=== PATIENT | female | born 1995 | race Caucasian/White ===

== ENCOUNTER 2019-03-24 20:43 | Emergency (ER) | payer MEDICAID, SELFPAY ==
[2019-03-24 20:51] VITALS: BP 112/71; PULSE 89; RESP 20; TEMP 37.3; O2SAT 97
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
[2019-03-24] MEDS: Ketorolac 30 MG/ML VIAL IVP (21:31)
[2019-03-24] MEDS: Normal Saline Flush 10 ML SYR IVP (21:39)
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
--- NOTE | 2019-03-24 22:13 | NUR.NOTE ---
Nursing Note: C-collar removed by RN/MD.
[2019-03-24 22:37] VITALS: BP 110/68; PULSE 74; RESP 20; O2SAT 97
== END 2019-03-24 22:36 | disposition home or self-care (01) ==
PROVIDERS: Emergency Provider Physician Assistant; PCP Nurse Practitioner Family
DX: S06.0X9A Concussion with loss of consciousness of unspecified duration, initial encounter (principal); S16.1XXA Strain of muscle, fascia and tendon at neck level, initial encounter; S40.012A Contusion of left shoulder, initial encounter; V86.05XA Driver of 3- or 4- wheeled all-terrain vehicle (ATV) injured in traffic accident, initial encounter
CPT/HCPCS: 81025; 96374; 99284; 70450; 72125; 73030; J1885

== ENCOUNTER 2019-06-27 16:07 | Outpatient (REF) | payer MEDICAID, SELFPAY | END 2019-06-27 16:27 | LOC: LBN 16:07 | PROVIDERS: PCP Nurse Practitioner Family; Visit Provider Nurse Practitioner | DX: R30.0 Dysuria (principal) | CPT/HCPCS: 87086 ==

== ENCOUNTER 2019-07-21 03:56 | Emergency (ER) | payer MEDICAID, SELFPAY ==
[2019-07-21 03:58] VITALS: BP 119/66; PULSE 80; RESP 16; TEMP 36.4; O2SAT 99
--- NOTE | 2019-07-21 04:08 | ED.GENADUL_ITS ---
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 Please follow-up with the OB doctor on Monday or Monday. Avoid any vaginal intercourse until you are reassessed by physician. Would recommend bedrest until you are seen by the OB doctor. Please continue to drink plenty of fluids, take Tylenol as needed for cramping. If you notice any worsening of your symptoms, or any new symptoms such as vomiting, diarrhea, fever, chills, shortness of breath, chest pain, numbness, weakness, or fainting , please return immediately to the emergency department for reevaluation. Please follow up with your primary care provider as soon as possible for reassessment and reevaluation. As always, it was a pleasure participating in your medical care today. Referrals: Christine Monreal [ CONSULTING PHYSICIAN] - Medical Decision Making This is a 23-year-old female who presents today for vaginal bleeding. She took a home test 2 weeks ago, it was positive. She suspects that she is 6 to 8 weeks at this time. She had vaginal bleeding that began yesterday, and was a small amount of brown streaking. However she has had slightly larger clots today. No significant profuse vaginal bleeding. Pain aside for occasional cramping. Physical exam demonstrates an obese female, no abdominal tenderness, no pelvic tenderness. Vaginal exam demonstrates an open cervix, small amount of brown coagulated blood in this cervical area and vaginal vault. No active bleeding. No tenderness or cervical motion tenderness or bimanual tenderness whatsoever. Cervix is atypically conical shaped. Patient denies having any atypical vaginal exams in the past. Limited bedside ultrasou nd demonstrates what appears to be a partial yolk sac in the uterus. No fully formed fetus can be visualized, no heart rate can be determined at this time. Signs and symptoms clinically appearing consistent with topic and clinically consistent with a threatened versus incomplete miscarriage. We will get Rh status, and serum hCG level. Pending these we did recommend bedrest, pelvic rest, close follow-up with OB. Will place referral for closer follow-up. Discussed red flags for which to return. I have extensively reviewed the treatment plan and discharge instructions with the patient and their family. I have addressed all patient concerns at this time. The patient and family was made aware of what symptoms to monitor for that would warrant a return to the emergency department. Discussed the plan with the patient and family, they demonstrate verbal understanding and agreement with our assessment and plan at this time. Patient is Rh-. She will be given RhoGam here. HPI General Date/Time Provider Initiated Documentation: 07/21/19 03:56 . HPI Narrative: Andrea gay is a 23-year-old female with no significant past medical history who presents for vaginal bleeding. Patient states she recently took a test, and it was positive. She suspects that she is 8 weeks . Yesterday she noticed a small amount of brown bleeding and streaking, and then today she is noticed increased bleeding mild cramping and small amounts of clots. She denies any nausea vomiting or diarrhea. She denies any previous . She denies any dysuria or urinary complaints. She is taking vitamins. She has not seen OB yet. She has no other complaints at this time. 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 CARRIE: 3 Review of Systems All systems reviewed & are unremarkable except as noted in HPI and below PFSH Medical History (Updated 07/15/19 @ 11:01 by Elaine Valerio) Allergic rhinitis (Acute 03/15/12) Attention deficit hyperactivity disorder (Acute 09/26/11) good control w/ current med Depression (Inactive) Dysmenorrhea Dysuria (Acute) Insomnia (Acute) Mood disorder (Acute) Other specified behavioral problem (Acute 08/23/12) lying Surgical History (Updated 06/27/19 @ 14:32 by Judy Guerra RN) History of cholecystectomy (Chronic) Family History (Updated 06/27/19 @ 14:28 by Judy Guerra RN) Mother Asthma Anxiety Depression Social History (Updated 07/15/19 @ 10:55 by Elaine Valerio) Smoking/Tobacco Use Status: Current-Occasional Smokeless tobacco user: other Smoking risk assessment performed?: Yes Alcohol Intake: current Alcohol Intake frequency: a few times a month Drug use: Rarely Substance use type: marijuana Adopted: No Caregiver/Support person: No Foster care: No Household members: significant other Housing: apartment Do you need help understanding health information?: Rarely current occupation: Unemployed Sexually active: Yes Do you think of yourself as: bisexual Current gender identity: female Do you feel safe at home: Yes Do you feel safe in your relationship?: Yes Additional Social history: Patient vapes. Exam Narrative Exam Narrative: 1.Const: Obese, well-nourished, Well-developed, appearing stated age 2.Eyes: PERRL, no conjunctival injection, and symmetrical lids. 3.ENT: Atraumatic external nose and ears. Moist MM. Neck: Symmetric, trachea midline, No thyromegaly. 4.CVS: +S1/S2, No murmurs or gallops. Peripheral pulses 2+ and equal in all extremities. Brisk capillary refill in all extremities. 5.RESP: Unlabored respiratory effort. Clear to auscultation bilaterally. No wheezes rales or rhonchi 6.GI: Soft, Nontender/Nondistended, No hepatosplenomegaly. No guarding or rebound. Pelvic exam was performed with female nurse Cristina at bedside, no active bleeding. No cervical motion tenderness, no tenderness on bimanual exam. Cervix itself was notably deep, and atypically positioned. It did appear open, but at the same time more conical shaped no pain or tenderness, no other abnormalities. 7.MSK: Normocephalic/Atraumatic, Extremities w/o deformity or ttp No cyanosis or clubbing, Normal movement of all extremities 8.Skin: Warm, Dry. No rashes or lesions. 9.Neuro: hospitalist nocturnist physician II-XII grossly intact. Sensation grossly intact, no focal neurologic deficits. 10.Psych: (AAO) x3. Appropriate mood and affect Course Vital Signs Vital signs: Vital Signs Temperature 36.4 C L 07/21/19 03:58 Pulse 80 07/21/19 03:58 Respiratory Rate 16 07/21/19 03:58 Blood Pressure 119/66 07/21/19 03:58 Pulse Oximetry 99 07/21/19 03:58 Temperature 36.4 C L 07/21/19 03:58 Temperature Source Skin 07/21/19 03:58 Pulse 80 07/21/19 03:58 Respiratory Rate 16 07/21/19 03:58 Respiratory Effort 07/21/19 04:01 Blood Pressure 119/66 07/21/19 03:58 Blood Pressure Position Supine 07/21/19 03:58 Pulse Oximetry 99 07/21/19 03:58 Oxygen Delivery Method Room Air 07/21/19 03:58 Oxygen Flow Rate 0 07/21/19 03:58
[2019-07-21 04:41] LABS: HCT 40.8 % (36.0-46.0); HGB 13.4 g/dL (12.0-15.5); Mean Corp. HGB Concentration 32.8 g/dL (32.0-36.0); Mean Corpuscular Volume 91.5 fL (80-95); Mean Platelet Volume 8.9 fL (8.0-11.0); Platelet Count 407 x1000/uL (130-400); RBC 4.46 m/cumm (4.00-5.20); RBC Distribution Width 13.3 % (11.7-14.6); White Blood Cell Count 11.03 k/cumm (4.4-10.8)
[2019-07-21 05:20] LABS: HCG Quant, Pregnancy 12357 mIU/mL (1-3)
--- NOTE | 2019-07-21 07:44 | NUR.NOTE ---
Nursing Note: Referral faxed to [facility] for follow up Mon or . Hayde Da Silva
== END 2019-07-21 05:25 | disposition home or self-care (01) ==
LOC: ER 05:27
PROVIDERS: Emergency Provider Student in an Organized Health Care Education/Training Program; PCP Nurse Practitioner
DX: O20.0 Threatened abortion (principal); Z3A.01 Less than 8 weeks gestation of pregnancy
CPT/HCPCS: 85027; 86900; 86901; 90384; 96372; 99284; 84702; 99283; J2790

== ENCOUNTER 2019-07-23 13:22 | Outpatient (CLI) | payer MEDICAID, SELFPAY ==
[2019-07-23 14:58] LABS: HCG Quant, Pregnancy 10262 mIU/mL (1-3)
== END 2019-07-23 13:42 ==
PROVIDERS: PCP Nurse Practitioner; Visit Provider Obstetrics & Gynecology
DX: O20.0 Threatened abortion (principal)
CPT/HCPCS: 36415; 84702

== ENCOUNTER 2019-07-26 08:31 | Emergency (ER) | payer MEDICAID, SELFPAY ==
[2019-07-26 08:33] VITALS: BP 108/68; PULSE 90; RESP 18; TEMP 36.6; O2SAT 98
--- NOTE | 2019-07-26 08:50 | ED.GENADUL_ITS ---
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 Take Tylenol every 4 hours as needed and directed for pain. Return to the hospital lab in 48 hours for repeat hormone (beta quantitative hCG) test. You will receive a call from Dr. May on Monday regarding these results. You can follow-up with women's wellness as directed. Return to the emergency department anytime if you develop any significant worsening or new concerning symptoms. Discharge Data Discharge Physician: Megha Martin Medical Decision Making 23-year-old female G1, P0 at approximately 5 weeks 4 days based on LMP 06/17/2019 presents for lower abdominal pain, vaginal bleeding and nausea and vomiting. Patient was seen here 5 days ago for the same complaint, 1 day after determining she was by home test, for abdominal pain and vaginal blee ding. Dr. Brown had done a limited bedside ultrasound which noted a possible yolk sac. She was noted to have an open [place] [id number] and referred for repeat beta quant in 48 hours. Her repeat beta quant at 48 hours was [id number]. Patient states she was not informed of these results. Patient presents today for worsening lower abdominal pain and gush of vaginal bleeding with small clots today while standing at work. She denies recent sexual intercourse. She admits to vomiting 5 times last evening. She states her lower abdominal pain is sharp and cramping. She has not taken any medication for pain. patient has a pelvic ultrasound planned for Monday for this . This patient was noted to have an open cervix 5 days ago, do not see an indication for repeat pelvic exam at this time. Likely recommend repeat beta quant in 48 hours with plan for follow-up with women's wellness. Case discussed with Dr. May who is in agreement with this plan will call patient on Monday with her beta quant results and discuss further plan with her at that time. A dose of Tylenol and Zofran given here to patient for her symptoms. She was advised to continue pelvic rest, bedrest, take Tylenol and Zofran as needed and return to the hospital in 48 hours for repeat beta quant. She was advised to return here with any worsening or new concerning symptoms. HPI General Mode of arrival: ambulatory . Date/Time Provider Initiated Documentation: 07/26/19 08:31 . Limitations to Documentation: no limitations . Information obtained by: patient . History of Present Illness 23 year old F presents to the emergency department with the chief complaint of abdominal pain, vaginal bleeding, n/v, Quality is described as aching and sharp, and is localized to the abdomen. Patient reports no radiation. Patient started experiencing this day(s) (5) and it has been constant. No relieving factors improve symptom(s), No exacerbating factors reported . Patient notes nausea/vomiting (vomiting 5 x); denies fever/chills and headaches. 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 CARRIE: 3 Review of Systems All systems reviewed & are unremarkable except as noted in HPI and below Constitutional Constitutional: Reports as per HPI, Denies chills and Denies fever(s) Eyes Eyes: Denies blurry vision ENT Ears, Nose, Mouth, and Throat: Denies dizziness, Denies sore throat and Denies throat swelling Cardiovascular Cardiovascular: Denies chest pain and Denies dyspnea Respiratory Respiratory: Denies cough and Denies dyspnea Gastrointestinal Gastrointestinal: Reports abdominal pain, Denies diarrhea and Denies vomiting Genitourinary Genitourinary: Denies hematuria, Denies dysuria and Reports other (vaginal bleeding) Musculoskeletal Musculoskeletal: Denies back pain and Denies numbness Integumentary/Breasts Skin/Breast: Denies lesions and Denies rash Neurologic Neurologic: Denies dizziness, Denies focal weakness and Denies numbness Allergic/Immunologic Allergic/Immunologic: Denies throat swelling [facility] Medical History Allergic rhinitis (Acute 03/15/12) Attention deficit hyperactivity disorder (Acute 09/26/11) good control w/ current med Depression (Inactive) Dysmenorrhea Dysuria (Acute) Insomnia (Acute) Mood disorder (Acute) Other specified behavioral problem (Acute 08/23/12) lying Surgical History History of cholecystectomy (Chronic) Family History Mother Asthma Anxiety Depression Social History Smoking/Tobacco Use Status: Current-Occasional Smokeless tobacco user: other Smoking risk assessment performed?: Yes Alcohol Intake: current Alcohol Intake frequency: a few times a month Drug use: Rarely Substance use type: marijuana Adopted: No Caregiver/Support person: No Foster care: No Household members: significant other Housing: apartment Do you need help understanding health information?: Rarely current occupation: Unemployed Sexually active: Yes Do you think of yourself as: bisexual Current gender identity: female Do you feel safe at home: Yes Do you feel safe in your relationship?: Yes Additional Social history: Patient vapes. Exam Const General: cooperative, healthy appearing and no acute distress HENMT Head: normal to inspection Face and sinus: normal facial exam Eyes General: appearance normal, both eyes and all related structures EOM: EOM intact bilaterally Neck Neck: normal visual inspection and No submandibular swelling Lymphatic: no lymphadenopathy noted Chest Chest: normal inspection of the chest and no tenderness Resp Effort & Inspection: normal respiratory effort and able to speak in complete sentences Auscultation: clear to auscultation bilaterally Cardio Rate: regular rate Rhythm: regular rhythm GI Inspection: normal to inspection Palpation: soft, not firm, not rigid and tender (across lower abdomen, mild- moderate) Auscultation: normal bowel sounds Skin General skin exam: no rashes or lesions noted Neuro General: alert, awake and oriented x3 Cognition: normal cognition Speech: speech normal Motor: muscle tone normal throughout Sensory Exam: no sensory deficits noted Extrem General: normal to inspection, full ROM, normal capillary refill, no calf tenderness bilaterally and no edema Psych Appearance: grossly normal Mental Status: mental status grossly normal Speech and Movement: speech and movement normal Affect: normal affect Course Vital Signs Vital signs: Vital Signs Temperature 97.9 F 07/26/19 08:33 Pulse 90 07/26/19 08:33 Respiratory Rate 18 07/26/19 08:33 Blood Pressure 108/68 07/26/19 08:33 Pulse Oximetry 98 07/26/19 08:33 Temperature 97.9 F 07/26/19 08:33 Temperature Source Skin 07/26/19 08:33 Pulse 90 07/26/19 08:33 Respiratory Rate 18 07/26/19 08:33 Respiratory Effort 07/26/19 08:38 Blood Pressure 108/68 07/26/19 08:33 Pulse Oximetry 98 07/26/19 08:33 Oxygen Delivery Method Room Air 07/26/19 08:33 Oxygen Flow Rate 0 07/26/19 08:33 Pain Level 8 07/26/19 08:33
[2019-07-26] MEDS: Acetaminophen 325 MG TAB (09:26)
[2019-07-26] MEDS: Ondansetron O.D.T. 4 MG TABEF (09:27)
[2019-07-26 09:33] VITALS: BP 89/71; PULSE 81; RESP 20; TEMP 36.8; O2SAT 97
[2019-07-26 09:39] VITALS: BP 89/71; PULSE 81; RESP 20; TEMP 36.8; O2SAT 97
== END 2019-07-26 09:50 | disposition home or self-care (01) ==
PROVIDERS: Emergency Provider Physician Assistant; PCP Nurse Practitioner
DX: O03.4 Incomplete spontaneous abortion without complication (principal); N93.9 Abnormal uterine and vaginal bleeding, unspecified; R11.2 Nausea with vomiting, unspecified; R10.2 Pelvic and perineal pain
CPT/HCPCS: 99283

== ENCOUNTER 2019-07-28 09:51 | Outpatient (CLI) | payer MEDICAID, SELFPAY ==
[2019-07-28 12:02] LABS: HCG Quant, Pregnancy 3196 mIU/mL (1-3)
== END 2019-07-28 10:11 ==
PROVIDERS: PCP Nurse Practitioner; Visit Provider Physician Assistant
DX: O03.4 Incomplete spontaneous abortion without complication (principal)
CPT/HCPCS: 36415; 84702

== ENCOUNTER 2019-10-18 19:06 | Emergency (ER) | payer MEDICAID, SELFPAY ==
[2019-10-18 19:10] VITALS: BP 121/72; PULSE 87; RESP 16; TEMP 37.6; O2SAT 97
--- NOTE | 2019-10-18 19:22 | ED.GENADUL_ITS ---
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 Your test was positive here today. Encourage water intake. Please continue with your vitamin. Please call women's wellness on Monday to schedule follow-up appointment. If develop abdominal Pain, fever/chills, abnormal vaginal discharge or bleeding, other new/worsening symptom please seek care urgently once again. Referrals: Pascale May MD [[facility] STAFF PHYSICIAN] - Lara Bejarano NP [Primary Care Provider] - Medical Decision Making Patient is a 23-year-old female presenting today for confirmation of status. She reports that she did take a home test and was noted to be positive. States she did have a miscarriage in July. She did receive RhoGam at that time. He is followed by women's wellness. Reports that her last menses was on 09/05/2019. Normal at that time. She denies any vaginal discharge. No abdominal pain. She has not had any fevers or chills. No cough. States that she is otherwise feeling well. Presents for confirmation of her status. Her UPT was positive. Advised normal follow-up and discuss recommendations in the first trimester . She was given return precautions. She will contact women's wellness regarding follow-up. All of her questions and concerns were addressed and she is agreement this plan. HPI General Mode of arrival: ambulatory . Date/Time Provider Initiated Documentation: 10/18/19 19:22 . Limitations to Documentation: no limitations . Information obtained by: patient and RN notes reviewed . History of Present Illness 23 year old F presents to the emergency department with the chief complaint of wants to confirm , Patient started experiencing this minute(s) Patient notes no other symptoms.. Patient did receive the following treatments prior to arrival, none Related Data Home Medications Medication Instructions Recorded Confirmed ondansetron HCl [Zofran] 4 mg PO Q8H PRN #10 tab 07/26/19 10/18/19 norgestimate 0.25 mg-ethinyl 1 tab PO DAILY #84 tab 08/06/19 09/26/19 estradiol 35 mcg tablet dextroamphetamine-amphetamine ER 25 mg PO QAM #30 cap MDD 25mg 09/26/19 10/18/19 25 mg 24hr capsule,extend release fluoxetine 20 mg capsule 20 mg PO DAILY #30 cap 09/26/19 10/18/19 Previous Rx's Medication Instructions Recorded ondansetron HCl [Zofran] 4 mg PO Q8H PRN #10 tab 07/26/19 norgestimate 0.25 mg-ethinyl 1 tab PO DAILY #84 tab 08/06/19 estradiol 35 mcg tablet dextroamphetamine-amphetamine ER 25 mg PO QAM #30 cap MDD 25mg 09/26/19 25 mg 24hr capsule,extend release fluoxetine 20 mg capsule 20 mg PO DAILY #30 cap 09/26/19 Allergies Allergy/AdvReac Type Severity Reaction Status Date / Time No Known Allergies Allergy Verified 08/06/19 10:43 General 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: 4 Review of Systems Constitutional Constitutional: Reports as per HPI, Denies chills, Denies fatigue, Denies fever(s) and Denies malaise Cardiovascular Cardiovascular: Denies chest pain and Denies dyspnea Respiratory Respiratory: Denies cough and Denies dyspnea Gastrointestinal Gastrointestinal: Denies abdominal pain, Denies bloating, Denies change in stool character, Reports nausea (states mild nausea), Denies vomiting and Denies hematemesis Genitourinary Genitourinary: Reports abnormal menses (last menses was 09/05/2019), Denies abnormal vaginal bleeding, Denies metrorrhagia, Denies hematuria, Denies difficulty conceiving, Denies genital lesions, Denies urinary urgency and Denies vaginal discharge Endocrine Endocrine: Denies fatigue [facility] Family History (Updated 09/26/19 @ 10:18 by Vikki Pathak RN) Mother Asthma Anxiety Depression Father Anxiety Depression ADHD Social History (Updated 09/26/19 @ 10:21 by Vikki Pathak RN) Smoking/Tobacco Use Status: Former Tobacco Use Quit Date: 08/24/19 Smokeless tobacco user: other Smoking risk assessment performed?: No Alcohol Intake: current Alcohol Intake frequency: a few times a month Alcohol type: other Drug use: Current Sobriety Substance use type: former substance user and marijuana Adopted: No Caregiver/Support person: No Foster care: No Household members: significant other Housing: apartment Number of Children: 0 Do you need help understanding health information?: Rarely current occupation: Unemployed Sexually active: Yes Do you think of yourself as: bisexual Current gender identity: female What type of physical activity do you participate in: walking Duration: 15-30 minutes/day Frequency: 5-6 times per week Do you feel safe at home: Yes Do you feel safe in your relationship?: Yes Exam Const General: cooperative, healthy appearing, comfortable and no acute distress Nutritional Appearance: well nourished and obese Orientation: alert, awake and oriented x3 HENMT Head: normal to inspection Ears: hearing grossly normal bilaterally Face and sinus: normal facial exam Mouth: oral mucosae normal Eyes General: appearance normal, both eyes and all related structures Resp Effort & Inspection: normal respiratory effort, able to speak in complete sentences and no respiratory distress Skin General skin exam: no rashes or lesions noted Neuro General: patient alert, patient awake and patient oriented x3 Cognition: normal cognition Speech: speech normal Gait: normal gait Psych Appearance: grossly normal and well kempt Mental Status: mental status grossly normal Speech and Movement: speech and movement normal Course Vital Signs Vital signs: Vital Signs Temperature 37.6 C H 10/18/19 19:10 Pulse 87 10/18/19 19:10 Respiratory Rate 16 10/18/19 19:10 Blood Pressure 121/72 10/18/19 19:10 Pulse Oximetry 97 10/18/19 19:10 Temperature 37.6 C H 10/18/19 19:10 Pulse 87 10/18/19 19:10 Respiratory Rate 16 10/18/19 19:10 Respiratory Effort Non-Labored 10/18/19 19:15 Blood Pressure 121/72 10/18/19 19:10 Pulse Oximetry 97 10/18/19 19:10 Pain Level 0 10/18/19 19:15 Lab/Test Results Lab/Test Results: POC Urine Test Start: 10/18/19 19:21 Freq: Status: Complete Protocol: Document 10/18/19 19:21 KR (Rec: 10/18/19 19:21 KR [id number]) Test(Urine)-POC POC- Test(urine) Positive POC- Test(urine) Positive
== END 2019-10-18 19:59 | disposition home or self-care (01) ==
PROVIDERS: Emergency Provider Physician Assistant; PCP Nurse Practitioner
DX: R11.0 Nausea (principal); Z33.1 Pregnant state, incidental; Z3A.00 Weeks of gestation of pregnancy not specified
CPT/HCPCS: 81025; 99282

== ENCOUNTER 2020-04-06 16:10 | Outpatient (CLI) | payer MEDICAID, SELFPAY ==
[2020-04-08 05:39] LABS: Patient Race White; SARS-CoV-2 RNA Undetected (Undetected); SARS-CoV-2 Specimen Source Nasal
== END 2020-04-06 16:30 ==
PROVIDERS: PCP Nurse Practitioner; Visit Provider Family Medicine
DX: Z11.59 Encounter for screening for other viral diseases (principal)
CPT/HCPCS: U0003

== ENCOUNTER 2020-04-09 16:28 | Outpatient (REF) | payer MEDICAID, SELFPAY ==
[2020-04-09 17:03] LABS: *AMPHETAMINES SCREEN URINE Negative (Negative); *BARBITURATES SCREEN URINE Negative (Negative); *BENZODIAZEPINES SCREEN URINE Negative (Negative); Cannabinoids THC Negative (Negative); Cocaine Screen,Urine Negative (Negative); METHADONE URINE SCREEN Negative (Negative); OPIATES URINE SCREEN Negative (Negative); Tricyclic Antidepressants Negative (Negative)
[2020-04-14 10:38] LABS: Buprenorphine Negative
== END 2020-04-09 16:48 ==
LOC: LBN 16:28
PROVIDERS: PCP Nurse Practitioner; Visit Provider Advanced Practice Midwife
DX: Z34.90 Encounter for supervision of normal pregnancy, unspecified, unspecified trimester (principal); F11.11 Opioid abuse, in remission
CPT/HCPCS: 80307; 87086

== ENCOUNTER 2020-05-05 00:30 | Outpatient (CLI) | payer MEDICAID, SELFPAY ==
--- NOTE | 2020-05-05 07:00 | DI.US_ITS ---
EXAM: US OB JOSE WEIGHT CLINICAL HISTORY: estimated wt and position,E66.0,Z34.93. TECHNIQUE: Transabdominal obstetrical ultrasound performed. COMPARISON: No exams were available for comparison FINDINGS:: Number of fetuses: One. position: Vertex. Placental location: Posterior. No evidence of previa. BIOMETRIC DATA: BPD: 90mm = 36+ 2 weeks HC: 331mm = 37+ 5 weeks AC: 339mm = 37+ 5 weeks FL: 70 mm = 35+5 weeks EFW: 3114 Gms = 77 % Composite Age: 36+ 6 EDC: 27 May 2020 Heart Rate: 130BPM Amniotic fluid index: 17.8 cm. Amount of fluid is within normal limits. IMPRESSION: size and weight are within the expected range. DATA REPOSITORY:
== END 2020-05-05 00:50 ==
PROVIDERS: PCP Nurse Practitioner; Visit Provider Obstetrics & Gynecology Gynecology
DX: Z34.93 Encounter for supervision of normal pregnancy, unspecified, third trimester (principal); E66.9 Obesity, unspecified
CPT/HCPCS: 76816

== ENCOUNTER 2020-05-06 15:55 | Outpatient (REF) | payer MEDICAID, SELFPAY ==
[2020-05-06 19:11] LABS: *AMPHETAMINES SCREEN URINE Negative (Negative); *BARBITURATES SCREEN URINE Negative (Negative); *BENZODIAZEPINES SCREEN URINE Negative (Negative); Cannabinoids THC Negative (Negative); Cocaine Screen,Urine Negative (Negative); METHADONE URINE SCREEN Negative (Negative); OPIATES URINE SCREEN Negative (Negative)
[2020-05-06 19:32] LABS: Tricyclic Antidepressants Negative (Negative)
== END 2020-05-06 16:15 ==
LOC: LBN 15:55
PROVIDERS: PCP Nurse Practitioner; Visit Provider Obstetrics & Gynecology
DX: Z34.93 Encounter for supervision of normal pregnancy, unspecified, third trimester (principal); Z36.85 Encounter for antenatal screening for Streptococcus B; Z3A.36 36 weeks gestation of pregnancy
CPT/HCPCS: 80307; 87081

== ENCOUNTER 2020-05-13 20:11 | Outpatient (CLI) | payer MEDICAID, SELFPAY ==
[2020-05-13 20:32] VITALS: BP 121/78; PULSE 89; TEMP 208.8; TEMP 98.2
--- NOTE | 2020-05-14 13:41 | W.OBNST ---
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 Gestational Age Gestational Age in Weeks and Days: 36 Weeks and 4Days Test and Monitor Explained Test/Monitor Explained: Test Explained, Monitor Explained and Patient Verbalized Understanding Vital Signs Blood Pressure: 121/78 Pulse: 89 Temperature: 208.8 F NST Information Date on Monitor: 05/13/20 Time on Monitor: 20:26 Date off Monitor: 05/13/20 Time off Monitor: 20:47 Total Time on Monitor: 21 NST Interventions: PO Hydration Contraction Frequency: NONE NST Evaluation Patient States Movement: Present FHR Baseline: 140 Variability: Moderate 6-25 bpm Accelerations: 15x15 Decelerations: None NST Results: Reactive Note Other (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 Cervix is closed long no evidence of labor) NST Note Note: Reactive NST. No contractions. Patient given reassurance that she is not in labor. She will follow-up at [facility] on 05/14/2020 as previously scheduled. NST Reviewed and Verified by: Pascale May
[2020-05-14 13:42] VITALS: BP 121/78; PULSE 89; TEMP 208.8; TEMP 98.2
== END 2020-05-13 20:50 | disposition home or self-care (01) ==
LOC: BCD 20:13 → OBS 20:32
PROVIDERS: PCP Nurse Practitioner; Visit Provider Obstetrics & Gynecology Gynecology
DX: O47.1 False labor at or after 37 completed weeks of gestation (principal); Z3A.36 36 weeks gestation of pregnancy
CPT/HCPCS: 59025; 76815

== ENCOUNTER 2020-06-10 16:27 | Emergency (ER) | payer MEDICAID, SELFPAY ==
[2020-06-10] VITALS (35 sets, daily range): BP systolic 95–139; BP diastolic 38–108; PULSE 77–116; RESP 11–26; TEMP 36.6; O2SAT 94–100
--- NOTE | 2020-06-10 16:45 | RT.EKG_ITS ---
APPROVED REPORT Exam: Resting ECG Patient Location: E HR:121 bpm ECG Measurements Heart Rate 121 AXIS WY 125 P 50 QRSd 72 QRS 63 QT 293 T 27 QTc 416 Conclusion Sinus tachycardia...rate> 99 Low voltage, precordial leads...precordial leads <1.0mV sinus tachycardia at 121, normal axis, no acute ischemic changes, nondiagnostic EKG
[2020-06-10 17:22] LABS: HCT 34.3 % (36.0-46.0); HGB 10.6 g/dL (11.2-15.7); Lymphocytes % 10.6; MCH 28.2 pg (27.0-33.0); MCHC 30.9 % (32.0-36.0); MCV 91.2 fL (80-95); MPV 9.3 fL (8.0-11.0); Neutrophils % 80.6; Platelet Count 503 10^3/uL (130-400); RBC 3.76 10^6/uL (3.93-5.22); RDW 16.5 % (11.7-14.6); RDW-SD 54.4 fL; WBC 12.82 10^3/uL (4.4-10.8)
[2020-06-10 17:23] LABS: Abs Immature Grans 0.16 10^3/uL (0.0-0.06); Absolute Basophil Count 0.05 10^3/uL (0.0-0.2); Absolute Eosinophil Count 0.17 10^3/uL (0.0-0.7); Absolute Lymphocyte Count 1.36 10^3/uL (1.2-3.4); Absolute Neutrophil Count 10.33 10^3/uL (1.2-6.7); Basophils % 0.4; Eosinophils % 1.3; Immature Grans % 1.2; Monocytes % 5.9; Nucleated RBC 0 %
[2020-06-10 17:27] LABS: Absolute Monocyte Count 0.76 10^3/uL (0.1-0.8)
[2020-06-10 17:38] LABS: Prothrombin Time 10.3 sec (9.3-11.0)
[2020-06-10 17:47] LABS: ALT 22 U/L (14-59); AST 21 U/L (15-37); Albumin 2.7 g/dL (3.4-5.0); Alkaline Phosphatase 160 U/L (46-116); Anion Gap 11.7 mmol/L (3-11); BUN 7 mg/dL (7-18); Bilirubin, Total 0.4 mg/dL (0.2-1.0); CO2 24.3 mmol/L (21.0-32.0); CREATININE 1.11 mg/dL (0.55-1.02); Calcium 9.3 mg/dL (8.5-10.1); Chloride 102 mmol/L (98-107); Glucose 89 mg/dL (74-106); Magnesium 1.6 mg/dL (1.8-2.4); Sodium 138 mmol/L (136-145); Total Protein 7.8 g/dL (6.4-8.2)
--- NOTE | 2020-06-10 17:50 | ED.GENADUL_ITS ---
Discharge Plan Disposition Patient Disposition: HOME Condition: Stable Discharge Details Clinical Impression: Edema, peripheral Primary Care Provider: Lara Bejarano ED Provider: Oliver Longoria Meds and New Rx's Prescriptions: Continued prenat.vits,rossy,[id number] Tablet 1 tab PO DAILY RF: 0 epinephrine [EpiPen 2-Vj] 0.3 mg/0.3 mL auto-injector 0.3 mg IM ONCE PRNRF: 0 esomeprazole magnesium [Nexium Packet] [address] for susp in packet 20 mg PO DAILY Qty: 30 RF: 0 Discharge Instructions Instructions: Enoxaparin (By injection), Deep Vein Thrombosis (ED), Edema (ED) Additional Instructions: Please return immediately to the emergency department if you develop any new or worsening symptoms, if your condition does not improve as expected, or if you become otherwise concerned. It is extremely important that you return here tomorrow to have your leg ultrasound as we discussed. As soon as you have your leg ultrasound, please go directly [facility] to be seen by Dr. Dempsey of obstetrics in follow-up. Referrals: Phuc Mora MD [ NON-[facility] STAFF PHYSICIAN] - Discharge Data Discharge Date/Time-TO BE ENTERED AT DEPARTURE: 06/10/20 22:13 Medical Decision Making <Akilah Fuentes MD - Last Filed: 06/24/20 22:31> Howie Solano is a 24 y/o woman who presented to the emergency department with LLE edema > RLE edema after one week ago. On exam Pt with b/l LE edema, left > right. Otherwise benign physical exam. Triage BP elevated. Concern for pre-eclampsia, however BP cuff ill-fitting and manual BP 105/70. Concern for DVT, metabolic/lyte derangement, other. US not available. Plan for screening labs. Exam/hx at this time not c/w sepsis, pre-eclampsia, cardiomyopathy, acute emergent infectious process. I discussed Pt with Dr. Diaz of obstetrics, who recommended ppx lovenox with outpt official US tomorrow am. Requested Pt go directly to [facility] after US performed. This was relayed to Pt, Pt amenable. On reassessment Pt reports to me that she has been having mild chest tightness over past few days. Pt is unsure whether pain is exertional. No current chest pain. Low risk for ACS, possible PE. Plan for d-dimer, trop. Bedside US performed by me shows compressible left femoral, popliteal veins. EKG okay. D-dimer elevated, trop negative. Plan for CT chest. CT chest negative for PE. Pt signed out to Dr. Longoria at time of shift change with repeat trop, reassessment pending. US ordered. Medical Records Medical records reviewed: Yes I reviewed the patient's medical records. Imaging Data Radiologic Study: Attestation: I personally reviewed and interpreted this imaging study as follows: Radiologist's impression: EXAM: CT CHEST PE CTA CLINICAL HISTORY: tachycardia, leg swelling. TECHNIQUE: Imaging Protocol: Axial CT angiography was performed with multi- slice acquisition and multi-planar and/or 3D reconstructions. CONTRAST MATERIAL: Intravenous: Omnipaque 350 Contrast volume:100 mL COMPARISON: No exams were available for comparison FINDINGS: Pulmonary Arteries: No evidence of filling defect to suggest pulmonary emboli. Tracheobronchial tree: Patent where visualized. Mediastinum and Joselyn: No dominant adenopathy or fluid collection. Pulmonary parenchyma: No focal consolidation. There is a 4 mm noncalcified subpleural pulmonary nodule in the right middle lobe (series 7, image 250). In a patient this age and no clinically significant risk factors, no follow-up is recommended as it is most certainly benign. Please correlate clinically. No architectural distortion. Pleura: No effusion or pneumothorax. Heart: The heart is not dilated. No coronary artery calcifications are seen. No significant pericardial effusion. Aorta: Thoracic aorta non-dilated. No dissection. Upper abdomen: Status post cholecystectomy. Bones: Normal. Soft tissues: Unremarkable. IMPRESSION: No evidence of pulmonary embolism, thoracic aortic dissection or aneurysm. Lab Data Lab results reviewed: Yes I reviewed the patient's lab results. ECG Data Attestation: I personally reviewed and interpreted this ECG (s) as follows: Interpretation: EKG shows sinus tachycardia at 121, normal axis, no acute i schemic changes, nondiagnostic EKG <Oliver Longoria MD - Last Filed: 06/10/20 22:06> Patient signed out to me pending repeat troponin. She had presented with increase leg swelling and some chest discomfort, please see Dr. Fuentes's note. Work up unremarkable except positive d-dimer with negative CTA. However, because of LLE swelling worse then RLE, U/S for tomorrow ordered and Lovenox given. Patient second troponin negative. Urine suggest UTI but patient without any urinary symptoms and still having a fair amount of discharge related to rec ent delivery. Will hold on empiric treatment until cultures return. Patient to follow up at [facility] tomorrow after U/S. Lab Data Lab results reviewed: Yes I reviewed the patient's lab results. HPI <Akilah Fuentes MD - Last Filed: 06/24/20 22:31> General Mode of arrival: ambulatory . Date/Time Provider Initiated Documentation: 06/10/20 16:57 . Limitations to Documentation: no limitations . Information obtained by: patient, RN notes reviewed and old records reviewed . HPI Narrative: Howie Solano is a 24-year-old woman who had a at 39 weeks at [facility] 1 week ago presenting to emergency department with leg swelling. Patient reports that she developed bilateral leg swelling the day after she delivered, worse on the left. Patient reports that this has been progressive since onset. Patient reports that she has had aching in her left calf and headache over the past 3 days. She denies any other pain. She states that she has been somewhat lightheaded over the past few days. She denies fevers, shortness of breath, cough, vomiting, diarrhea, numbness, weakness. Denies visual changes contrary to triage note. Patient states no complications during . Patient states that she is attempting to breast-feed. Denies history of blood clots. Has been eating and drinking as usual. Pt reports that overall she feels well. Related Data Home Medications Medication Instructions Recorded Confirmed prenat.vits,rossy,zmt-[id number] 1 tab PO DAILY 10/22/19 06/11/20 epinephrine 0.3 mg/0.3 mL 0.3 mg IM ONCE PRN 04/09/20 06/11/20 injection, auto-injector esomeprazole magnesium 10 mg 20 mg PO DAILY #30 ea 04/21/20 06/11/20 granules delayed release for susp Previous Rx's Medication Instructions Recorded esomeprazole magnesium 10 mg 20 mg PO DAILY #30 ea 04/21/20 granules delayed release for susp Allergies Allergy/AdvReac Type Severity Reaction Status Date / Time almond Allergy Intermediate Unverified 06/10/20 17:06 peanut Allergy Intermediate Unverified 06/10/20 17:06 General Stated Complaint: Vascular CARRIE: 3 Review of Systems <Akilah Fuentes MD - Last Filed: 06/24/20 22:31> Narrative: Constitutional: denies fevers Eyes: denies eye pain ENT: denies ear pain, dental pain, sore throat Cardiovascular: denies chest pain, reports edema Respiratory: denies SOB, cough GI: denies abdominal pain, vomiting, diarrhea : denies flank pain MSK: denies back pain, neck pain, arthralgias, myalgias Skin: denies rash Neuro: denies numbness, focal weakness, reports mild intermittent headache PFSH <Akilah Fuentes MD - Last Filed: 06/24/20 22:31> Medical History Allergic rhinitis (03/15/12) Attention deficit hyperactivity disorder (09/26/11) good control w/ current med Depression Dysmenorrhea Dysuria Insomnia Mood disorder Other specified behavioral 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/23/12) lying Surgical History (Updated 06/11/20 @ 13:42 by Brittany Solano DO) History of cholecystectomy Status post primary low transverse section Family History Mother Asthma Anxiety Depression Father Anxiety Depression ADHD Social History Smoking/Tobacco Use Status: Former Tobacco Use Quit Date: 08/24/19 Smokeless tobacco user: other Smoking risk assessment performed?: Yes Alcohol Intake: former Drug use: Current Sobriety Substance use type: does not use Adopted: No Caregiver/Support person: No Foster care: No Household members: significant other Housing: apartment Number of Children: 0 Do you need help understanding health information?: Rarely current occupation: Unemployed Sexually active: Yes Do you think of yourself as: bisexual Current gender identity: female What type of physical activity do you participate in: walking Duration: 15-30 minutes/day Frequency: 5-6 times per week Do you feel safe at home: Yes Do you feel safe in your relationship?: Yes History History 4 Para 0 Hx # Term Pregnancies 0 Multiple births 0 Hx # Pregnancies 0 Ectopic pregnancies 0 AB induced 0 Hx Number of Living Children 0 AB spontaneous 3 Past Pregnancies Del. Date GA/Weeks # Outcome Route Wgt Sex Labor Lgth Anesthes ia Location Prov Complic 06/02/20 40 No Successful 3912.234 g Male [facility] [place] Exam <Akilah Fuentes MD - Last Filed: 06/24/20 22:31> Narrative Exam Narrative: Constitutional: well and [id number], pleasant, conversing normally HENT: head atraumatic/normocephalic/normal inspection, mucous membranes moist Eyes: conjunctiva normal, sclera normal, pupils 3mm b/l Neck: no stridor, normal ROM, trachea midline Chest: normal inspection Resp: normal work of breathing, speaking in full sentences Cardio: normal rate, normal rhythm Skin: warm, dry, normal color, no rash Neuro: alert, not altered, grossly non-focal, normal tone Ext: 3+ edema LLE, 1-2+ edema RLE, mild posterior calf TTP. DP pulses intact b/l. No skin changes. Psych: normal mood, normal affect, normal behavior Course <Akilah Fuentes MD - Last Filed: 06/24/20 22:31> Vital Signs Vital signs: Vital Signs Temperature 36.6 C 06/10/20 16:51 Pulse 116 H 06/10/20 16:51 Blood Pressure 139/108 H 06/10/20 16:51 Pulse Oximetry 99 06/10/20 16:51 Temperature 36.6 C 06/10/20 16:51 Temperature Source Tympanic 06/10/20 16:51 Pulse 116 H 06/10/20 16:51 Respiratory Effort Non-Labored 06/10/20 16:56 Blood Pressure 139/108 H 06/10/20 16:51 Blood Pressure Position Sitting 06/10/20 16:51 Pulse Oximetry 99 06/10/20 16:51 Oxygen Delivery Method Room Air 06/10/20 16:51 Oxygen Flow Rate 0 06/10/20 16:51 Pain Level 6 06/10/20 16:51 Comment 06/10/20 16:51 Lab/Test Results Lab/Test Results: Laboratory Tests Range/Units 06/10/20 06/10/20 06/10/20 17:03 17:03 17:03 WBC (4.4-10.8) 10^3/uL 12.82 H RBC (3.93-5.22) 10^6/uL 3.76 L Hgb (11.2-15.7) g/dL 10.6 L Hct (36.0-46.0) % 34.3 L MCV (80-95) fL 91.2 MCH (27.0-33.0) pg 28.2 MCHC (32.0-36.0) % 30.9 L RDW (11.7-14.6) % 16.5 H Plt Count (130-400) 10^3/uL 503 H MPV (8.0-11.0) fL 9.3 Immature Gran % 1.2 Neutrophils % 80.6 Lymphocytes % 10.6 Monocytes % 5.9 Eosinophils % 1.3 Basophils % 0.4 Nucleated RBC % % 0 Absolute Neutrophils (1.2-6.7) 10^3/uL 10.33 H Absolute Lymphocytes (1.2-3.4) 10^3/uL 1.36 Absolute Monocytes (0.1-0.8) 10^3/uL 0.76 Absolute Eosinophils (0.0-0.7) 10^3/uL 0.17 Absolute Basophils (0.0-0.2) 10^3/uL 0.05 PT (9.3-11.0) sec 10.3 INR (0.9-1.1) 1.0 Sodium (136-145) mmol/L 138 Potassium (3.5-5.1) mmol/L 4.0 Chloride (98-107) mmol/L 102 Carbon Dioxide (21.0-32.0) mmol/L 24.3 Anion Gap (3-11) mmol/L 11.7 H BUN (7-18) mg/dL 7 Creatinine (0.55-1.02) mg/dL 1.11 H Estimated GFR/1.73 m2 (mL/min/1.73m2) >= 60.00 Glucose (74-106) mg/dL 89 Calcium (8.5-10.1) mg/dL 9.3 Magnesium (1.8-2.4) mg/dL 1.6 L Total Bilirubin (0.2-1.0) mg/dL 0.4 AST (15-37) U/L 21 ALT (14-59) U/L 22 Alkaline Phosphatase (46-116) U/L 160 H Total Protein (6.4-8.2) g/dL 7.8 Albumin (3.4-5.0) g/dL 2.7 L Sign Out <Akilah Fuentes MD - Last Filed: 06/24/20 22:31> Sign Out Data: Sign Out Comment: Patient signed out to Dr. Longoria at time of shift change with repeat troponin, reassessment pending Last updated by Akilah Fuentes MD at 06/10/20 20:43
[2020-06-10 17:55] LABS: Bilirubin Negative (Negative); Blood Large (Negative); Clarity Cloudy (Clear); Glucose Negative (Negative); Ketones Negative (Negative); Leukocyte Esterase Moderate (Negative); Nitrite Negative (Negative); Urobilinogen 0.2 EU/dL (Up TO 0.2)
--- NOTE | 2020-06-10 18:00 | DI.CT_ITS ---
EXAM: CT CHEST PE CTA CLINICAL HISTORY: tachycardia, leg swelling. TECHNIQUE: Imaging Protocol: Axial CT angiography was performed with multi-slice acquisition and mu lti-planar and/or 3D reconstructions. CONTRAST MATERIAL: Intravenous: Omnipaque 350 Contrast volume:100 mL COMPARISON: No exams were available for comparison FINDINGS: Pulmonary Arteries: No evidence of filling defect to suggest pulmonary emboli. Tracheobronchial tree: Patent where visualized. Mediastinum and Joselyn: No dominant adenopathy or fluid collection. Pulmonary parenchyma: No focal consolidation. There is a 4 mm noncalcified subpleural pulmonary nodul e in the right middle lobe (series 7, image 250). In a patient this age and no clinically significant risk factors, no follow-up is recommended as it is most certainly benign. Please correlate clinicall y. No architectural distortion. Pleura: No effusion or pneumothorax. Heart: The heart is not dilated. No coronary artery calcifications are seen. No significant pericardi al effusion. Aorta: Thoracic aorta non-dilated. No dissection. Upper abdomen: Status post cholecystectomy. Bones: Normal. Soft tissues: Unremarkable. IMPRESSION: No evidence of pulmonary embolism, thoracic aortic dissection or aneurysm. RADIATION DOSE DELIVERED: 750.01mGy.cm Total DLP DATA REPOSITORY: All CT scans at this facility are submitted to the National Radiology Data Registry (NRDR) Dose Index Registry (DIR) with the [employer] (ACR). RADIATION OPTIMIZATION: All CT scans at this facility use at least one of these dose optimization te chniques: automated exposure control; mA and/or kV adjustment per patient size (includes targeted exa ms where dose is matched to clinical indication); or iterative reconstruction.
[2020-06-10 18:03] LABS: Bacteria Many HPF (Negative); C & S Indicated? Yes; Casts Negative LPF (Negative); Crystals Negative HPF (Negative); Epithelial Cells Rare HPF (Negative); Mucus Negative (Negative); Other Cells Negative (Negative); RBC >50 HPF (0-2); WBC >50 HPF (0-5)
[2020-06-10 18:08] LABS: Troponin I < 0.05 ng/mL (<0.06)
[2020-06-10 18:09] LABS: D-Dimer 4137 ng/mlFEU (<500)
[2020-06-10] MEDS: Omnipaque 350 MG/ML 100 ML BTL IJ (18:58)
[2020-06-10] MEDS: Normal Saline - Diluent 50 ML VIAL IV (18:58)
[2020-06-10] MEDS: Normal Saline Flush 10 ML SYR IVP (18:59)
[2020-06-10 19:08] LABS: NT-proBNP 70 pg/mL (<300)
[2020-06-10] MEDS: Normal Saline 1,000 ML 1000 ML IV (19:27)
[2020-06-10] MEDS: Acetaminophen 500 MG TAB 1000 MG PO (19:30)
--- NOTE | 2020-06-10 20:01 | DI.VRAD_ITS ---
PROCEDURE INFORMATION: Exam: CT Angiography Chest With Contrast Exam date and time: 06/10/2020 18:11 Age: 24 years old Clinical indication: Other: Tachycardia, leg swelling; Patient HX: Cesarian 1 week ago TECHNIQUE: Imaging protocol: Computed tomographic angiography of the chest with intravenous contrast. 3D rendering (Not supervised by radiologist): MIP and/or 3D reconstructed images were created by the technologist. Radiation optimization: All CT scans at this facility use at least one of these dose optimization techniques: automated exposure control; mA and/or kV adjustment per patient size (includes targeted exams where dose is matched to clinical indication); or iterative reconstruction. Contrast material: [id number]; Contrast volume: 100 ml; Contrast route: INTRAVENOUS (IV); COMPARISON: CR CHEST 2 VIEWS PA,LAT 04/11/2014 11:12 FINDINGS: Pulmonary arteries: No pulmonary emboli. Aorta: No aortic aneurysm. No aortic dissection. Lungs: 4 mm subpleural nodule in the right upper lobe statistically almost certainly benign at this patient's age, no dedicated imaging follow up indicated in the absence of clinically suspicious findings. No airspace consolidation. No suspicious pulmonary nodules or mass lesions. Pleural space: No pneumothorax. No pleural effusion. Heart: Trace pericardial fluid appears likely physiologic. Lymph nodes: No enlarged lymph nodes. Bones/joints: No acute fracture. Soft tissues: No suspicious lesions. IMPRESSION: 1. No pulmonary emboli are seen. 2. No acute cardiopulmonary pathology. Dictated and Authenticated by: Samantha Oneill MD. Ordering:SALO Isbell MD
--- NOTE | 2020-06-10 20:53 | NUR.NOTE ---
Nursing Note: Verbal order from provider Gina to DC Magnesium Sulfate.
[2020-06-10 21:23] LABS: Troponin I < 0.05 ng/mL (<0.06)
== END 2020-06-10 22:13 | disposition home or self-care (01) ==
PROVIDERS: Student in an Organized Health Care Education/Training Program; Emergency Provider Emergency Medicine; PCP Nurse Practitioner
DX: R60.0 Localized edema (principal); R07.89 Other chest pain; R79.1 Abnormal coagulation profile
CPT/HCPCS: 36415; 71275; 80053; 93005; 96360; 99285; 81003; 81015; 83735; 83880; 84484; 85025; 85379; 85610; 87086; 93010; 99284; J1650; J3490

== ENCOUNTER 2020-06-11 16:40 | Outpatient (CLI) | payer MEDICAID, SELFPAY ==
--- NOTE | 2020-06-11 | DI.US_ITS ---
EXAM: US EXTREMITY VENOUS BI CLINICAL HISTORY: BILAT LOWER LEG EDEMA, LT WORSE. TECHNIQUE: Bilateral lower extremity venous ultrasound performed using grayscale, color-flow, and sp ectral Doppler analysis. COMPARISON: No exams were available for comparison FINDINGS: The bilateral common femoral, femoral and popliteal veins demonstrate normal compressibility, augment ation, and color Doppler. The posterior tibial veins are patent. The saphenofemoral junctions are unr emarkable. There is no evidence of a Delgado's cyst. The soft tissues are unremarkable. IMPRESSION: Right: Negative for DVT Left: Negative for DVT DATA REPOSITORY:
== END 2020-06-11 17:00 ==
PROVIDERS: PCP Nurse Practitioner; Visit Provider Student in an Organized Health Care Education/Training Program
DX: R60.0 Localized edema (principal)
CPT/HCPCS: 93970

== ENCOUNTER 2020-11-13 01:03 | Outpatient (CLI) | payer MEDICAID, SELFPAY ==
--- NOTE | 2020-11-13 11:00 | NS.NUTBLAN_ITS ---
24 year old female referred to Medical Nutrition Therapy for weight management. 5'4 305 lbs BMI 50. 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 Dx with ADD but unable to tolerate adderall or ritalin. Reports long hx of poor body image and depression. Has not taken antidepressants. Has gained > 100 lbs in last 5 years due to overeating. Diet recall indicates erratic meal time with reliance on convenience foods. No exercise due to knee pain with added weight. Wants to lose weight to be more active with her son. Is considering weight loss surgery as has tried many different diets with poor results. Session today included instruction on how to follow [id number] kcal, 90-100 g carb, 55-65 g protein diet with emphasis on regular meal plans, complex carbs, lean protein and healthy fats. Encouraged non caloric beverages. Goal: 5-10 lbs weight loss per month Plan: follow up 12/15/20 at 11 am
== END 2020-11-13 01:04 | disposition home or self-care (01) ==
LOC: DS 01:03
PROVIDERS: PCP Nurse Practitioner; Visit Provider Dietitian, Registered
DX: E66.09 Other obesity due to excess calories (principal); Z68.43 Body mass index [BMI] 50.0-59.9, adult; Z71.3 Dietary counseling and surveillance
CPT/HCPCS: 97802

== ENCOUNTER 2020-12-01 13:19 | Outpatient (REF) | payer MEDICAID, SELFPAY ==
[2020-12-02 11:29] LABS: COVID-19 RT-PCR UVMMC Result Negative (Negative)
== END 2020-12-01 13:20 | disposition home or self-care (01) ==
LOC: NCHCN 13:19
PROVIDERS: Visit Provider Nurse Practitioner Family
DX: Z20.822 Contact with and (suspected) exposure to COVID-19 (principal)
CPT/HCPCS: U0003

== ENCOUNTER 2020-12-15 03:55 | Outpatient (CLI) | payer MEDICAID, SELFPAY ==
--- NOTE | 2020-12-14 13:00 | NS.NUTBLAN_ITS ---
Howie returns for Medical Nutrition Therapy for weight management. 5'4 306 lbs BMI 50. Howie reports she has cut down on convenience foods and sweet beverages but unable to lose weight in last 4 weeks. Reports that she plans to move to [place] in next month and to have bariatric surgery in [place]. Often skips breakfast. She reports walking daily 30 minutes, eating 3 times per day and eating < 50 g carbs per day. Encouraged Howie to increase caloric intake to meet [id number] kcal with emphasis on complex carbs, lean protein and healthy fats- 3 meals, 2 snacks daily. Session today reinforced weight loss principles such as daily exercise, eating on a schedule and meeting nutrient need to encourage fat metabolism. No follow up planned at this time as Howie will be moving in next couple of week.
== END 2020-12-15 03:56 | disposition home or self-care (01) ==
LOC: DS 03:55
PROVIDERS: Visit Provider Dietitian, Registered
DX: E66.09 Other obesity due to excess calories (principal); Z68.43 Body mass index [BMI] 50.0-59.9, adult; Z71.3 Dietary counseling and surveillance
CPT/HCPCS: 97803

== ENCOUNTER 2021-01-08 17:51 | Outpatient (REF) | payer MEDICAID, SELFPAY | END 2021-01-08 17:52 | disposition home or self-care (01) | LOC: NCHCN 17:51 | PROVIDERS: Visit Provider Nurse Practitioner Family | DX: N89.8 Other specified noninflammatory disorders of vagina (principal); R82.998 Other abnormal findings in urine | CPT/HCPCS: 87086; 87480; 87510; 87660 ==

== ENCOUNTER 2021-04-01 20:56 | Outpatient (REF) | payer MEDICAID, SELFPAY ==
[2021-04-01 21:41] LABS: Abs Immature Grans 0.06 10^3/uL (0.0-0.06); Absolute Basophil Count 0.07 10^3/uL (0.0-0.2); Absolute Lymphocyte Count 3.49 10^3/uL (1.2-3.4); Basophils % 0.5; Eosinophils % 2.7; HCT 39.4 % (36.0-46.0); HGB 12.1 g/dL (11.2-15.7); Immature Grans % 0.4; Lymphocytes % 23.8; MCHC 30.7 % (32.0-36.0); MCV 81.4 fL (80-95); MPV 9.6 fL (8.0-11.0); Neutrophils % 68.6; Nucleated RBC 0 %; Platelet Count 448 10^3/uL (130-400); RBC 4.84 10^6/uL (3.93-5.22); RDW 16.2 % (11.7-14.6); RDW-SD 47.5 fL; WBC 14.67 10^3/uL (4.4-10.8)
[2021-04-01 21:44] LABS: Absolute Monocyte Count 0.59 10^3/uL (0.1-0.8); Absolute Neutrophil Count 10.06 10^3/uL (1.2-6.7)
[2021-04-01 22:01] LABS: ALT 37 U/L (14-59); AST 21 U/L (15-37); Albumin 3.6 g/dL (3.4-5.0); Alkaline Phosphatase 139 U/L (46-116); Anion Gap 8.6 mmol/L (3-11); BUN 10 mg/dL (7-18); Bilirubin, Total 0.4 mg/dL (0.2-1.0); CO2 26.4 mmol/L (21.0-32.0); Calcium 8.7 mg/dL (8.5-10.1); Chloride 106 mmol/L (98-107); Glucose 81 mg/dL (74-106); Potassium 4.5 mmol/L (3.5-5.1); Sodium 141 mmol/L (136-145); Total Protein 7.2 g/dL (6.4-8.2)
== END 2021-04-01 20:57 | disposition home or self-care (01) ==
LOC: LBN 20:56
PROVIDERS: Visit Provider Physician Assistant Medical
DX: R10.2 Pelvic and perineal pain (principal)
CPT/HCPCS: 80053; 85025; 87480; 87510; 87660

== ENCOUNTER 2021-04-05 07:29 | Outpatient (CLI) | payer MEDICAID, SELFPAY ==
--- NOTE | 2021-04-05 08:45 | DI.CT_ITS ---
Exam(s) CT ABDOMEN PELVIS W EXAM: CT ABDOMEN PELVIS W CLINICAL HISTORY: PELVIC PAIN, R10.2, ? APPY/OVARIAN CYST/INFECTION. TECHNIQUE: Imaging Protocol: Axial computed tomography images with coronal and sagittal reformatted images were created and reviewed CONTRAST MATERIAL: Intravenous: Omnipaque 350 Contrast volume:100 ml Oral: yes / no COMPARISON: CT CT CHEST PE CTA from 06/10/2020 FINDINGS: ABDOMEN: Lung Bases: Normal where visualized. Liver: Fatty infiltration.. No measurable mass. Gallbladder and biliary tract: Status post cholecystectomy. No biliary dilatation. Pancreas: Normal density, no abnormal calcifications or inflammatory process. Spleen: Normal. Kidneys: Normal size, contour and axis. No radiodense stones or obstructive uropathy. No masses seen. Adrenal glands: No masses seen. Abdominal Aorta: Abdominal portion non-dilated. PELVIS: Bladder: No gross wall thickening. No calculi.No focal mass. Bowel: No obstruction or bowel wall thickening. Appendix normal.Normal quantity of stool. Peritoneal cavity: No ascites, collection or mesenteric inflammatory response. Bones: Within normal limits for age. Reproductive organs: Within normal limits. Lymph nodes: Unremarkable. Impression: Unremarkable CT scan of the abdomen and pelvis. RADIATION DOSE DELIVERED: 1,745.26mGy.cm Total DLP DATA REPOSITORY: All CT scans at this facility are submitted to the National Radiology Data Registry (NRDR) Dose Index Registry (DIR) with the [employer] (ACR). RADIATION OPTIMIZATION: All CT scans at this facility use at least one of these dose optimization te chniques: automated exposure control; mA and/or kV adjustment per patient size (includes targeted exa ms where dose is matched to clinical indication); or iterative reconstruction.
[2021-04-05] MEDS: Omnipaque 350 MG/ML 100 ML BTL IV (08:47)
== END 2021-04-05 07:49 ==
PROVIDERS: Visit Provider Physician Assistant Medical
DX: R10.2 Pelvic and perineal pain (principal)
CPT/HCPCS: 74177; J3490

== ENCOUNTER 2021-04-05 10:28 | Outpatient (REF) | payer MEDICAID, SELFPAY | END 2021-04-05 10:29 | disposition home or self-care (01) | LOC: LBN 10:28 | PROVIDERS: Visit Provider Physician Assistant Medical | DX: R10.2 Pelvic and perineal pain (principal) | CPT/HCPCS: 87480; 87510; 87660 ==

== ENCOUNTER 2021-04-12 16:12 | Emergency (ER) | payer MEDICAID, SELFPAY ==
[2021-04-12 16:22] VITALS: BP 143/108; PULSE 110; RESP 18; TEMP 36.8; O2SAT 97
--- NOTE | 2021-04-12 16:52 | ED.GENADUL_ITS ---
Discharge Plan Disposition Patient Disposition: HOME Condition: Stable Discharge Details Clinical Impression: Cough, Nausea Primary Care Provider: Unknown,Unknown ED Provider: Moni Aguila Home Meds and New Rx's Prescriptions: Continued prenat.vits,rossy,[id number] Tablet 1 tab PO DAILY RF: 0 epinephrine [EpiPen 2-Vj] 0.3 mg/0.3 mL auto-injector 0.3 mg IM ONCE PRNRF: 0 Nexplanon 68 mg implant 1 implant subdermal ONCE RF: 0 pramoxine [Proctofoam] 1 % foam 1 applic PA QID Qty: 15 RF: 0 dextroamphetamine-amphetamine [Adderall XR] 25 mg capsule,extended release 24hr 25 mg PO DAILY RF: 0 cholecalciferol (vitamin D3) 25 mcg (1,000 unit) capsule 25 mcg PO DAILY RF: 0 Discharge Instructions Instructions: Acute Nausea and Vomiting (ED), Acute Cough (ED) Additional Instructions: Your exam is reassuring here today. Lungs are clear, no evidence of pneumonia or bronchitis at this time. Please continue to encourage hydration. You may use tylenol and/or ibuprofen as needed for discomfort. Please follow up with primary care in the next 1-2 weeks for reevaluation. Please quarantine until your COVID results are back. If you develop shortness of breath, inability to stay hydrated or other new/worsening symptoms please seek care urgently once again. Stand Alone Forms: Work Release Referrals: Enedina Gold [ [id number] PH[facility]ICIAN] - Discharge Data Discharge Date/Time-TO BE ENTERED AT DEPARTURE: 04/12/21 17:25 Medical Decision Making Patient is a pleasant 25 year old female presenting today with c/c of 3 days of dry cough, nausea, chills. Her parents and child have been sick. She has been vaccinated against COVID. No SOB or CP. Has had chronic lower abdominal pain which she states is being worked up by PCP, had imaging last week. Is not reporting new pain. No change in bowel habits. On exam, she appears nontoxic. She was initially tachycardic at 110 but this had resolved on auscultation. Lungs are clear. Abdomen benign. Patient does not appear septic. Hx and exam not consistent with PE. Sounds more viral. She appears well hydrated. No actual vomiting or change in PO intake reported As she has had sick contacts, will COVID test. Encouraged hdyration. She reports she is tolerating fluids well. Advised f/u with PCP in 1-2 weeks for reeva luation. Return precautions discussed. Advised that she quarantine until results are back. All of her quesitons and concerns were addressed, she is in agreement with this plan. HPI General Mode of arrival: ambulatory . Date/Time Provider Initiated Documentation: 04/12/21 16:19 . Limitations to Documentation: no limitations . Information obtained by: patient and RN notes reviewed . History of Present Illness 25 year old F presents to the emergency department with the chief complaint of Cough, chills, nausea, described as moderate, with intensity rated at 5. Quality is described as aching (Reports diffuse body aches), Patient reports no radiation. Patient started experiencing this day(s) (3) and it has been constant. No exacerbating factors reported . Patient notes cough, fever/chills and nausea/vomiting; denies chest pain, headaches, shortness of breath and syncope. Patient did receive the following treatments prior to arrival, none Related Data Home Medications Medication Instructions Recorded Confirmed prenat.vits,rossy,[id number] 1 tab PO DAILY 10/22/19 04/12/21 epinephrine 0.3 mg/0.3 mL 0.3 mg IM ONCE PRN 04/09/20 04/12/21 injection, auto-injector etonogestrel 68 mg subdermal 1 implant SUBDERMAL ONCE 07/28/20 04/12/21 implant cholecalciferol (vitamin D3) 25 25 mcg PO DAILY 10/02/20 04/12/21 mcg (1,000 unit) capsule dextroamphetamine-amphetamine ER 25 mg PO DAILY 10/02/20 04/12/21 25 mg 24hr capsule,extend release pramoxine 1 % topical foam 1 applic PA QID #15 g 10/06/20 04/12/21 Previous Rx's Medication Instructions Recorded pramoxine 1 % topical foam 1 applic PA QID #15 g 10/06/20 Allergies Allergy/AdvReac Type Severity Reaction Status Date / Time almond Allergy Intermediate Unverified 04/12/21 17:38 peanut Allergy Intermediate Unverified 04/12/21 17:38 General Stated Complaint: GenMedical CARIRE: 3 Review of Systems Constitutional Constitutional: Reports as per HPI, Reports chills, Denies fever(s) and Denies headache(s) Eyes Eyes: Reports as per HPI, Denies eye discharge and Denies irritation ENT Ears, Nose, Mouth, and Throat: Reports as per HPI and Denies headache(s) Cardiovascular Cardiovascular: Reports as per HPI, Denies chest pain and Denies dyspnea Respiratory Respiratory: Reports as per HPI, Reports cough, Denies hemoptysis and Denies dyspnea Gastrointestinal Gastrointestinal: Reports as per HPI, Denies abdominal pain, Denies change in bowel habits, Reports nausea and Denies vomiting Integumentary/Breasts Skin/Breast: Reports as per HPI and Denies rash Neurologic Neurologic: Reports as per HPI and Denies headache(s) [facility] Medical History Allergic rhinitis (03/15/12) Attention deficit hyperactivity disorder (09/26/11) good control w/ current med Depression Dysmenorrhea Dysuria Edema Generalized headaches History of closed head injury Insomnia Mood disorder Other specified behavioral problem (08/23/12) lying Peanut allergy Surgical History History of cholecystectomy Status post primary low transverse section Family History Mother Asthma Anxiety Depression Father Anxiety Depression ADHD Social History Smoking/Tobacco Use Status: Former Tobacco Use Quit Date: 08/24/19 Smokeless tobacco user: other Smoking risk assessment performed?: Yes Alcohol Intake: former Drug use: Current Sobriety Substance use type: does not use Adopted: No Caregiver/Support person: No Foster care: No Household members: significant other Housing: apartment Number of Children: 0 Do you need help understanding health information?: Rarely current occupation: Unemployed Sexually active: Yes Do you think of yourself as: bisexual Current gender identity: female What type of physical activity do you participate in: walking Duration: 15-30 minutes/day Frequency: 5-6 times per week Do you feel safe at home: Yes Do you feel safe in your relationship?: Yes History History 4 Para 0 Hx # Term Pregnancies 0 Multiple births 0 Hx # Pregnancies 0 Ectopic pregnancies 0 AB induced 0 Hx Number of Living Children 0 AB spontaneous 3 Past Pregnancies Del. Date GA/Weeks # Outcome Route Wgt Sex Labor Lgth Anesthes ia Location Prov Complic 06/02/20 40 No Successful 3912.234 g Male [facility] [place] Exam Const General: cooperative, healthy appearing, comfortable, no acute distress, well developed and well groomed Nutritional Appearance: well nourished and obese Orientation: alert and awake [facility] Head: normal to inspection, normocephalic and atraumatic Ears: hearing grossly normal bilaterally and external ears normal General nose exam: external nose normal and nares normal Face and sinus: normal facial exam, sinuses nontender and face symmetric Mouth: oral mucosae normal, lip normal, tongue normal, oropharynx normal and moist mucous membranes Teeth and gingiva: dentition normal Throat: posterior oropharynx normal, tonsils normal and uvula midline Eyes General: appearance normal, both eyes and all related structures Neck Neck: normal visual inspection, full ROM and no lymphadenopathy Resp Effort & Inspection: normal respiratory effort, able to speak in complete sentences and no respiratory distress Auscultation: clear to auscultation bilaterally, no rales, no rhonchi and no wheezes Cardio Rate: regular rate Rhythm: regular rhythm Heart Sounds: S1 normal and S2 normal Skin General skin exam: no rashes or lesions noted Neuro General: patient alert and patient awake Cognition: normal cognition Speech: speech normal Gait: normal gait Psych Appearance: grossly normal and well kempt Mental Status: mental status grossly normal Speech and Movement: speech and movement normal Course Vital Signs Vital signs: Vital Signs Temperature 36.8 C 04/12/21 16:22 Pulse 110 H 04/12/21 16:22 Respiratory Rate 18 04/12/21 16:22 Blood Pressure 143/108 H 04/12/21 16:22 Pulse Oximetry 97 04/12/21 16:22 Temperature 36.8 C 04/12/21 16:22 Temperature Source Skin 04/12/21 16:22 Pulse 110 H 04/12/21 16:22 Respiratory Rate 18 04/12/21 16:22 Respiratory Effort 04/12/21 16:25 Blood Pressure 143/108 H 04/12/21 16:22 Pulse Oximetry 97 04/12/21 16:22 Oxygen Delivery Method Room Air 04/12/21 16:22 Oxygen Flow Rate 0 04/12/21 16:22 Pain Level 5 04/12/21 16:22 Comment 04/12/21 16:22
[2021-04-14 17:06] LABS: COVID-19 RT-PCR UVMMC Result Negative (Negative)
--- NOTE | 2021-04-19 08:33 | NUR.NOTE ---
Nursing Note: This RN called the patient on 04/19/2021 at 0834, confirmed patients birthdate and relayed negative COVID results. Patient verbalized understanding.
== END 2021-04-12 17:25 | disposition home or self-care (01) ==
LOC: ER 17:21
PROVIDERS: Emergency Provider Physician Assistant
DX: R05 Cough (principal); R11.2 Nausea with vomiting, unspecified; Z20.822 Contact with and (suspected) exposure to COVID-19
CPT/HCPCS: 99281; U0003; 99282

== ENCOUNTER 2021-06-04 11:54 | Outpatient (REF) | payer MEDICAID, SELFPAY ==
[2021-06-05 15:09] LABS: COVID-19 RT-PCR UVMMC Result Negative (Negative)
== END 2021-06-04 11:55 | disposition home or self-care (01) ==
LOC: NCHCN 11:54
PROVIDERS: Student in an Organized Health Care Education/Training Program; Visit Provider Nurse Practitioner Family
DX: Z20.822 Contact with and (suspected) exposure to COVID-19 (principal)
CPT/HCPCS: U0003

== ENCOUNTER 2021-06-09 06:58 | Emergency (ER) | payer MEDICAID, SELFPAY ==
[2021-06-09 07:02] VITALS: BP 117/90; PULSE 99; RESP 16; TEMP 36.7; O2SAT 97
--- NOTE | 2021-06-09 07:05 | W.ED.GENAD ---
Discharge Plan Disposition Patient Disposition: HOME Condition: Good Discharge Details Clinical Impression: Congested ear, Decreased hearing, Otitis media Primary Care Provider: Unknown,Unknown ED Provider: Harinder Brown Home Meds and New Rx's Prescriptions: New amoxicillin-pot clavulanate [Augmentin] 875-125 mg tablet 1 tab PO BID 7 Days Qty: 14 RF: 0 loratadine 10 mg capsule 10 mg PO DAILY Qty: 30 RF: 0 Continued prenat.vits,rossy,hjx-rsca-lakdo Tablet 1 tab PO DAILY RF: 0 epinephrine [EpiPen 2-Vj] 0.3 mg/0.3 mL auto-injector 0.3 mg IM ONCE PRNRF: 0 Nexplanon 68 mg implant 1 implant subdermal ONCE RF: 0 pramoxine [Proctofoam] 1 % foam 1 applic AR QID Qty: 15 RF: 0 dextroamphetamine-amphetamine [Adderall XR] 25 mg capsule,extended release 24hr 25 mg PO DAILY RF: 0 cholecalciferol (vitamin D3) 25 mcg (1,000 unit) capsule 25 mcg PO DAILY RF: 0 Discharge Instructions Instructions: Ear Infection (ED) Additional Instructions: At this time you have evidence of otitis media which is an ear infection. There is also fluid behind both of your eardrums which is likely causing the diminished hearing. Please take the antibiotic and loratadine antihistamine as directed. They have both been sent to your pharmacy on file. If you have persistent decreased hearing after 5 to 7 days please follow-up with the ENT specialist for further evaluation of the hearing loss. If you notice any worsening of your symptoms, or any new symptoms such as vomiting, diarrhea, fever, chills, shortness of breath, chest pain, numbness, weakness, or fainting , please return immediately to the emergency department for reevaluation. Please follow up with your primary care provider as soon as possible for reassessment and reevaluation. As always, it was a pleasure participating in your medical care today. Referrals: Chris Manning MD [ [facility] STAFF PHYSICIAN] - Medical Decision Making 25-year-old female presents today with fullness in her ears, as well as diminished hearing secondary to this. Symptoms started 3 days ago with mild URI with congestion, runny nose and right ear fullness. There is transition to bilateral ear fullness and mild pain. She denies any discharge. She denies any tinnitus. She denies any trauma or fever. She states that all of her hearing feels muffled at this time. No other complaints at time. No neck pain, history of diabetes, or other complaint. Physical exam demonstrates right-sided otitis media with effusion in the left side serous effusion. No significant mastoid tenderness. [place] testing demonstrates intact bone conduction, and diminished air conduction. Suspect that her symptoms are secondary to the effusion and the cause of her diminished hearing. We will give Augmentin for antibiotic and loratadine as an antihistamine to help reduce this. Recommend that the patient follow-up closely with the ENT if her symptoms persist after treatment regiment. At this time the patient shows no signs of malignant otitis externa, or other significant concerning abnormalities. No focal neurologic deficits to suggest intracranial etiology. I have extensively reviewed the treatment plan and discharge instructions with the patient. I have addressed all patient concerns at this time. The patient was made aware of what symptoms to monitor for that would warrant a return to the emergency department. Discussed the plan with the patient, they demonstrate verbal understanding and agreement with our assessment and plan at this time. The documentation in this chart was dictated using Marakana dictation software. Please excuse any dictation errors. HPI General Date/Time Provider Initiated Documentation: 06/09/21 06:58. HPI Narrative: 25-year-old female presents today with fullness in her ears, as well as diminished hearing secondary to this. Symptoms started 3 days ago with mild URI with congestion, runny nose and right ear fullness. There is transition to bilateral ear fullness and mild pain. She denies any discharge. She denies any tinnitus. She denies any trauma or fever. She states that all of her hearing feels muffled at this time. No other complaints at time. No neck pain, history of diabetes, or other complaint. Related Data Home Medications Medication Instructions Recorded Confirmed prenat.vits,rossy,[id number] 1 tab PO DAILY 10/22/19 04/12/21 epinephrine 0.3 mg/0.3 mL 0.3 mg IM ONCE PRN 04/09/20 04/12/21 injection, auto-injector etonogestrel 68 mg subdermal 1 implant SUBDERMAL ONCE 07/28/20 04/12/21 implant cholecalciferol (vitamin D3) 25 25 mcg PO DAILY 10/02/20 04/12/21 mcg (1,000 unit) capsule dextroamphetamine-amphetamine ER 25 mg PO DAILY 10/02/20 04/12/21 25 mg 24hr capsule,extend release pramoxine 1 % topical foam 1 applic AR QID #15 g 10/06/20 04/12/21 amoxicillin-pot clavulanate 1 tab PO BID 7 Days #14 tab 06/09/21 [Augmentin] loratadine 10 mg PO DAILY #30 cap 06/09/21 Previous Rx's Medication Instructions Recorded pramoxine 1 % topical foam 1 applic AR QID #15 g 10/06/20 amoxicillin-pot clavulanate 1 tab PO BID 7 Days #14 tab 06/09/21 [Augmentin] loratadine 10 mg PO DAILY #30 cap 06/09/21 Allergies Allergy/AdvReac Type Severity Reaction Status Date / Time almond Allergy Intermediate Unverified 06/09/21 07:12 peanut Allergy Intermediate Unverified 06/09/21 07:12 General CARRIE: 3 Review of Systems All systems reviewed & are unremarkable except as noted in HPI and below PFSH Active Problem List Cough (Acute) Nausea (Acute) Congested ear (Acute) Decreased hearing (Acute) Otitis media (Acute) Anal fissure (Acute) Generalized headaches (Acute) Edema (Acute) Peanut allergy (Acute) Hemorrhoid (Acute) Status post primary low transverse section (Acute) GERD (gastroesophageal reflux disease) (Chronic) Obesity (Chronic) Unspecified contraceptive management (Acute) Mood disorder (Acute) Other specified behavioral problem (Acute 08/23/12) Allergic rhinitis (Acute 03/15/12) Attention deficit hyperactivity disorder (Acute 09/26/11) Medical History Depression Dysmenorrhea History of closed head injury Surgical History History of cholecystectomy Family History Mother Asthma Anxiety Depression Father Anxiety Depression ADHD Social History (Reviewed 06/09/21 @ 07:10 by ZULY Moore Smoking/Tobacco Use Status: Former Tobacco Use Quit Date: 08/24/19 Smokeless tobacco user: other Smoking risk assessment performed?: Yes Alcohol Intake: former Drug use: Current Sobriety Substance use type: does not use Adopted: No Caregiver/Support person: No Foster care: No Household members: significant other Housing: apartment Number of Children: 0 Do you need help understanding health information?: Rarely current occupation: Unemployed Sexually active: Yes Do you think of yourself as: bisexual Current gender identity: female What type of physical activity do you participate in: walking Duration: 15-30 minutes/day Frequency: 5-6 times per week Do you feel safe at home: Yes Do you feel safe in your relationship?: Yes History History 4 Para 0 Hx # Term Pregnancies 0 Multiple births 0 Hx # Pregnancies 0 Ectopic pregnancies 0 AB induced 0 Hx Number of Living Children 0 AB spontaneous 3 Past Pregnancies Del. Date GA/Weeks # Outcome Route Wgt Sex Labor Lgth Anesthesia Location Prov Complic 06/02/20 40 No Successful 3912.234 g Male [facility] [place] Exam Narrative Exam Narrative: 1.Const: Well-nourished, Well-developed, appearing stated age 2.Eyes: PERRL, no conjunctival injection, and symmetrical lids. 3.ENT: Atraumatic external nose and ears. Moist MM. Neck: Symmetric, trachea midline, No thyromegaly. Patient demonstrates right-sided otitis media with effusion, and a left-sided serous effusion in her left tympanic membrane. No significant mastoid tenderness. No nuchal rigidity.The domonique Test demonstrates intact bone conduction, and decreased air conduction. 4.CVS: +S1/S2, No murmurs or gallops. Peripheral pulses 2+ and equal in all extremities. Brisk capillary refill in all extremities. 5.RESP: Unlabored respiratory effort. Clear to auscultation bilaterally. No wheezes rales or rhonchi 6.GI: Soft, Nontender/Nondistended, No hepatosplenomegaly. No guarding or rebound. 7.MSK: Normocephalic/Atraumatic, Extremities w/o deformity or ttp No cyanosis or clubbing, Normal movement of all extremities 8.Skin: Warm, Dry. No rashes or lesions. 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 Sensation grossly intact, no focal neurologic deficits. 10.Psych: (AAO) x3. Appropriate mood and affect
== END 2021-06-09 07:20 | disposition home or self-care (01) ==
PROVIDERS: Emergency Provider Student in an Organized Health Care Education/Training Program
DX: H66.91 Otitis media, unspecified, right ear (principal); H91.8X3 Other specified hearing loss, bilateral; J06.9 Acute upper respiratory infection, unspecified
CPT/HCPCS: 99283

== ENCOUNTER 2021-07-13 12:53 | Emergency (ER) | payer MEDICAID, SELFPAY ==
[2021-07-13 12:57] VITALS: BP 117/74; PULSE 94; RESP 18; TEMP 36.4; O2SAT 99
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
[2021-07-13 13:32] LABS: HCT 39.2 % (36.0-46.0); HGB 11.9 g/dL (11.2-15.7); MCH 25.4 pg (27.0-33.0); MCHC 30.4 % (32.0-36.0); MCV 83.8 fL (80-95); RBC 4.68 10^6/uL (3.93-5.22); WBC 14.55 10^3/uL (4.4-10.8)
[2021-07-13 13:33] LABS: Abs Immature Grans 0.06 10^3/uL (0.0-0.06); Absolute Basophil Count 0.07 10^3/uL (0.0-0.2); Absolute Lymphocyte Count 2.44 10^3/uL (1.2-3.4); Absolute Monocyte Count 0.65 10^3/uL (0.1-0.8); Absolute Neutrophil Count 11.12 10^3/uL (1.2-6.7); Basophils % 0.5; Eosinophils % 1.4; Immature Grans % 0.4; Lymphocytes % 16.8; MPV 9.2 fL (8.0-11.0); Monocytes % 4.5; Neutrophils % 76.4; Nucleated RBC 0 %; Platelet Count 412 10^3/uL (130-400); RDW 15.5 % (11.7-14.6); RDW-SD 46.6 fL
[2021-07-13 13:49] LABS: ALT 34 U/L (14-59); AST 24 U/L (15-37); Albumin 3.4 g/dL (3.4-5.0); Alkaline Phosphatase 117 U/L (46-116); Anion Gap 8.1 mmol/L (3-11); BUN 14 mg/dL (7-18); Bilirubin, Total 0.3 mg/dL (0.2-1.0); CO2 25.9 mmol/L (21.0-32.0); Calcium 8.9 mg/dL (8.5-10.1); Chloride 105 mmol/L (98-107); Glucose 117 mg/dL (74-106); Magnesium 2.1 mg/dL (1.8-2.4); Potassium 3.5 mmol/L (3.5-5.1); Sodium 139 mmol/L (136-145); Total Protein 7.2 g/dL (6.4-8.2)
[2021-07-13] MEDS: Omnipaque 350 MG/ML 100 ML BTL IJ (14:08)
[2021-07-13] MEDS: Normal Saline Flush 10 ML SYR IVP (14:09)
[2021-07-13 14:46] VITALS: BP 117/74; PULSE 94; RESP 18; TEMP 36.4; O2SAT 99
== END 2021-07-13 15:26 | disposition home or self-care (01) ==
PROVIDERS: Emergency Provider Emergency Medicine; PCP Nurse Practitioner Family
DX: S09.8XXA Other specified injuries of head, initial encounter (principal); S16.1XXA Strain of muscle, fascia and tendon at neck level, initial encounter; S30.0XXA Contusion of lower back and pelvis, initial encounter; R07.89 Other chest pain; R10.11 Right upper quadrant pain; S30.1XXA Contusion of abdominal wall, initial encounter; V49.9XXA Car occupant (driver) (passenger) injured in unspecified traffic accident, initial encounter
CPT/HCPCS: 36415; 74177; 80053; 99285; 70450; 71260; 72125; 72128; 72131; 83735; 85025; 99284; J3490

== ENCOUNTER 2021-09-15 11:42 | Emergency (ER) | payer MEDICAID, SELFPAY ==
[2021-09-15 12:01] VITALS: BP 121/66; PULSE 86; RESP 16; TEMP 36.7; O2SAT 99
[2021-09-15 13:30] LABS: Abs Immature Grans 0.05 10^3/uL (0.0-0.06); Absolute Basophil Count 0.08 10^3/uL (0.0-0.2); Absolute Eosinophil Count 0.22 10^3/uL (0.0-0.7); Absolute Lymphocyte Count 3.36 10^3/uL (1.2-3.4); Absolute Monocyte Count 0.54 10^3/uL (0.1-0.8); Absolute Neutrophil Count 8.86 10^3/uL (1.2-6.7); Basophils % 0.6; Eosinophils % 1.7; HCT 40.4 % (36.0-46.0); HGB 12.2 g/dL (11.2-15.7); Immature Grans % 0.4; Lymphocytes % 25.6; MCH 25.3 pg (27.0-33.0); MCHC 30.2 % (32.0-36.0); MCV 83.6 fL (80-95); MPV 9.3 fL (8.0-11.0); Monocytes % 4.1; Neutrophils % 67.6; Nucleated RBC 0 %; Platelet Count 447 10^3/uL (130-400); RBC 4.83 10^6/uL (3.93-5.22); RDW 14.6 % (11.7-14.6); RDW-SD 44.1 fL; WBC 13.11 10^3/uL (4.4-10.8)
--- NOTE | 2021-09-15 13:35 | W.ED.GENAD ---
Discharge Plan Disposition Patient Disposition: HOME Condition: Improving Discharge Details Clinical Impression: Chronic diarrhea, Chronic cough, Shortness of breath Primary Care Provider: Enedina Gold ED Provider: Megha Martin Home Meds and New Rx's Prescriptions: Continued epinephrine [EpiPen 2-Vj] 0.3 mg/0.3 mL auto-injector 0.3 mg IM ONCE PRN0RF Rx Instructions: as a single dose Nexplanon 68 mg implant 1 implant subdermal ONCE 0RF Rx Instructions: as a single dose cholecalciferol (vitamin D3) 25 mcg (1,000 unit) capsule 25 mcg PO DAILY 0RF loratadine 10 mg capsule 10 mg PO DAILY Qty: 30 0RF Discharge Instructions Additional Instructions: Drink plenty of fluids and get plenty of rest. Take the Zofran as needed and directed for nausea and vomiting. Follow-up with your primary care doctor in 1 week for reevaluation and for referral to gastroenterology for further evaluation of your chronic diarrhea if needed and for referral to allergy for your chronic cough and post-nasal drip if indicated. Return to the emergency department with any worsening or new concerning symptoms. Please quarantine at your Covid test result is available and if confirmed to be negative. Stand Alone Forms: PENDING COVID-19 TESTING, Work Release Discharge Data Discharge Date/Time-TO BE ENTERED AT DEPARTURE: 09/15/21 15:16 Discharge Physician: Megha Martin Medical Decision Making 25-year-old female presents with chronic cough for the past 4 months, watery brown diarrhea for the past month, with shortness of breath since last night and an episode of specks of blood in her mask after coughing followed by an episode of vomiting with a small blood clot in the toilet today at work. Vitals are within normal limits. She is on nexplanon otherwise no DVT/PE risk factors. Normal ENT exam. Lungs clear. Abdomen soft nontender. Differential diagnosis includes viral illness, blood-tinged sputum that may occur with tiny capillary tear with coughing or vomiting, etc. History and presentation do not appear consistent with PE, but considering her symptoms will obtain screening labs, D-dimer, chest x-ray and give fluids and reassess. Labs and imaging reviewed. White blood cell count 13 which may be an acute stress response. D-dimer negative. Normal electrolytes. Chest x-ray negative. Patient reassessed and she feels better and feels okay to go home. She was given a Zofran bottle to go. She was provided with a work note. Advised to quarantine until her Covid test result is available and if confirmed to be negative. Usual and customary return precautions given prior to discharge. Medical Records Medical records reviewed: Yes I reviewed the patient's medical records. Imaging Data Radiologic Study: Radiologist's impression: XR CHEST 2V PA ? LATERAL CLINICAL HISTORY:? shortness of breath, r/o acute disease TECHNIQUE:? 2D digital imaging was performed. COMPARISON:? No exams were available for comparison FINDINGS: MEDIASTINUM: Normal.? HEART: Normal. PULMONARY VASCULATURE: Normal. LUNGS: Clear. ? PLEURAL SPACE: No pleural effusion or pneumothorax. BONE:Unremarkable for age.? Exam somewhat limited by patient body habitus. IMPRESSION: No acute abnormality.? Lab Data Lab results reviewed: Yes I reviewed the patient's lab results. Labs: Laboratory Tests Range/Units 09/15/21 09/15/21 09/15/21 13:20 13:20 13:20 WBC (4.4-10.8) 10^3/uL 13.11 H RBC (3.93-5.22) 10^6/uL 4.83 Hgb (11.2-15.7) g/dL 12.2 Hct (36.0-46.0) % 40.4 MCV (80-95) fL 83.6 MCH (27.0-33.0) pg 25.3 L MCHC (32.0-36.0) % 30.2 L RDW (11.7-14.6) % 14.6 Plt Count (130-400) 10^3/uL 447 H MPV (8.0-11.0) fL 9.3 Immature Gran % 0.4 Neutrophils % 67.6 Lymphocytes % 25.6 Monocytes % 4.1 Eosinophils % 1.7 Basophils % 0.6 Nucleated RBC % % 0 Absolute Neutrophils (1.2-6.7) 10^3/uL 8.86 H Absolute Lymphocytes (1.2-3.4) 10^3/uL 3.36 Absolute Monocytes (0.1-0.8) 10^3/uL 0.54 Absolute Eosinophils (0.0-0.7) 10^3/uL 0.22 Absolute Basophils (0.0-0.2) 10^3/uL 0.08 D-Dimer (<500) ng/mlFEU 424 Sodium (136-145) mmol/L 140 Potassium (3.5-5.1) mmol/L 3.9 Chloride (98-107) mmol/L 105 Carbon Dioxide (21.0-32.0) mmol/L 25.9 Anion Gap (3-11) mmol/L 9.1 BUN (7-18) mg/dL 9 Creatinine (0.55-1.02) mg/dL 1.0 Estimated GFR/1.73 m2 (mL/min/1.73m2) >= 60.00 Glucose (74-106) mg/dL 78 Calcium (8.5-10.1) mg/dL 8.9 Total Bilirubin (0.2-1.0) mg/dL 0.4 AST (15-37) U/L 21 ALT (14-59) U/L 31 Alkaline Phosphatase (46-116) U/L 129 H Total Protein (6.4-8.2) g/dL 7.7 Albumin (3.4-5.0) g/dL 3.5 Lipase (73-393) U/L 68 HPI General Mode of arrival: ambulatory. Date/Time Provider Initiated Documentation: 09/15/21 12:09. Limitations to Documentation: no limitations. Information obtained by: patient. HPI Narrative: Patient is a 25-year-old female who presents with daily diarrhea for the past month, chronic cough for the past 4 months, difficulty breathing since last night and vomiting and coughing today with blood in the vomitus and blood in her mask after coughing today at work. Patient states the diarrhea has been mostly every day and has been occasionally loose but also watery and brown. She denies any blood in her stool. She states she wakes up often with a sore throat and has a smokers-like cough but states she does not smoke. She states today at work she coughed once and took down her mask and noted bright red tiny blood clots. She states she then felt a queasy feeling and nauseous and vomited once which is mainly clear in bile with a small sized blood clot in the toilet. She denies any coughing or vomiting since then. She states since last night she noted some occasional shortness of breath. She denies any known fever, chest pain, abdominal pain or urinary symptoms. She states she is vaccinated for COVID but has not received a booster and denies any known exposure to coronavirus. Related Data Home Medications Medication Instructions Recorded Confirmed epinephrine 0.3 mg/0.3 mL 0.3 mg IM ONCE PRN 04/09/20 09/15/21 injection, auto-injector (EpiPen 2-Vj) etonogestrel 68 mg subdermal 1 implant SUBDERMAL ONCE 07/28/20 09/15/21 implant (Nexplanon) cholecalciferol (vitamin D3) 25 25 mcg PO DAILY 10/02/20 09/15/21 mcg (1,000 unit) capsule loratadine 10 mg capsule 10 mg PO DAILY #30 cap 06/09/21 09/15/21 Previous Rx's Medication Instructions Recorded loratadine 10 mg capsule 10 mg PO DAILY #30 cap 06/09/21 Allergies Allergy/AdvReac Type Severity Reaction Status Date / Time almond Allergy Intermediate Unverified 09/15/21 12:06 peanut Allergy Intermediate Unverified 09/15/21 12:06 General Stated Complaint: Nausea/Vomit/Diar CARRIE: 3 Review of Systems All systems reviewed & are unremarkable except as noted in HPI and below Constitutional Constitutional: Reports as per HPI, Denies chills and Denies fever(s) Eyes Eyes: Denies blurry vision ENT Ears, Nose, Mouth, and Throat: Denies dizziness, Denies sore throat and Denies throat swelling Cardiovascular Cardiovascular: Denies chest pain and Reports dyspnea Respiratory Respiratory: Reports cough and Reports dyspnea Gastrointestinal Gastrointestinal: Denies abdominal pain, Reports diarrhea and Reports vomiting Genitourinary Genitourinary: Denies hematuria and Denies dysuria Musculoskeletal Musculoskeletal: Denies back pain and Denies numbness Integumentary/Breasts Skin/Breast: Denies lesions and Denies rash Neurologic Neurologic: Denies dizziness, Denies localized weakness and Denies numbness Allergic/Immunologic Allergic/Immunologic: Denies throat swelling PFSH All Active Problems (Updated 09/15/21 @ 14:57 by Megha Martin DO) Chronic diarrhea (Acute) Chronic cough (Acute) Shortness of breath (Acute) Conductive hearing loss, bilateral (Acute) Acute serous otitis media, bilateral (Acute) Cough (Acute) Nausea (Acute) Congested ear (Acute) Decreased hearing (Acute) Otitis media (Acute) Anal fissure (Acute) Generalized headaches (Acute) Edema (Acute) Peanut allergy (Acute) Hemorrhoid (Acute) Status post primary low transverse section (Acute) GERD (gastroesophageal reflux disease) (Chronic) Obesity (Chronic) Unspecified contraceptive management (Acute) Mood disorder (Acute) Other specified behavioral problem (Acute 08/23/12) lying Allergic rhinitis (Acute 03/15/12) Attention deficit hyperactivity disorder (Acute 09/26/11) good control w/ current med Active Problem List Cough (Acute) Nausea (Acute) Congested ear (Acute) Decreased hearing (Acute) Otitis media (Acute) Anal fissure (Acute) Generalized headaches (Acute) Edema (Acute) Peanut allergy (Acute) Hemorrhoid (Acute) Status post primary low transverse section (Acute) GERD (gastroesophageal reflux disease) (Chronic) Obesity (Chronic) Unspecified contraceptive management (Acute) Mood disorder (Acute) Other specified behavioral problem (Acute 08/23/12) Allergic rhinitis (Acute 03/15/12) Attention deficit hyperactivity disorder (Acute 09/26/11) Medical History Depression Dysmenorrhea History of closed head injury Surgical History History of cholecystectomy Family History Mother Asthma Anxiety Depression Father Anxiety Depression ADHD Social History Smoking/Tobacco Use Status: Former Tobacco Use Quit Date: 08/24/19 Smokeless tobacco user: other Smoking risk assessment performed?: Yes Alcohol Intake: former Drug use: Current Sobriety Substance use type: does not use Adopted: No Caregiver/Support person: No Foster care: No Household members: significant other Housing: apartment Number of Children: 0 Do you need help understanding health information?: Rarely current occupation: Unemployed Sexually active: Yes Do you think of yourself as: bisexual Current gender identity: female What type of physical activity do you participate in: walking Duration: 15-30 minutes/day Frequency: 5-6 times per week Do you feel safe at home: Yes Do you feel safe in your relationship?: Yes History History 4 Para 1 Hx # Term Pregnancies 1 Multiple births 0 Hx # Pregnancies 0 Ectopic pregnancies 0 AB induced 0 Hx Number of Living Children 1 AB spontaneous 3 Past Pregnancies Del. Date GA/Weeks # Outcome Route Wgt Sex Labor Lgth Anesthesia Location Prov Complic 06/02/20 40 No Successful 3912.234 g Male [facility] [place] [facility] [place] Exam Const General: cooperative, healthy appearing and no acute distress Orientation: alert, awake and oriented x3 HENMT Head: normal to inspection Mouth: oral mucosae normal Eyes General: appearance normal, both eyes and all related structures Neck Neck: normal visual inspection Resp Effort & Inspection: normal respiratory effort and able to speak in complete sentences Cardio Rate: regular rate GI Inspection: obesity Palpation: soft, not firm, no guarding, not rigid and nontender Auscultation: no hypoactive bowel sounds Skin General skin exam: no rashes or lesions noted Neuro General: patient alert, patient awake and patient oriented x3 Motor: muscle tone normal throughout Extrem General: normal to inspection and full ROM Psych Appearance: grossly normal Affect: normal affect Course Vital Signs Vital signs: Vital Signs Temperature 98.1 F 09/15/21 12:01 Pulse 86 09/15/21 12:01 Respiratory Rate 16 09/15/21 12:01 Blood Pressure 121/66 09/15/21 12:01 Pulse Oximetry 99 09/15/21 12:01 Temperature 98.1 F 09/15/21 12:01 Temperature Source Skin 09/15/21 12:01 Pulse 86 09/15/21 12:01 Respiratory Rate 16 09/15/21 12:01 Respiratory Effort 09/15/21 12:01 Blood Pressure 121/66 09/15/21 12:01 Blood Pressure Position Sitting 09/15/21 12:01 Pulse Oximetry 99 09/15/21 12:01 Oxygen Delivery Method Room Air 09/15/21 12:01 Oxygen Flow Rate 0 09/15/21 12:01 Pain Level 4 09/15/21 12:01 Lab/Test Results Lab/Test Results: Laboratory Tests Range/Units 09/15/21 13:20 WBC (4.4-10.8) 10^3/uL 13.11 H RBC (3.93-5.22) 10^6/uL 4.83 Hgb (11.2-15.7) g/dL 12.2 Hct (36.0-46.0) % 40.4 MCV (80-95) fL 83.6 MCH (27.0-33.0) pg 25.3 L MCHC (32.0-36.0) % 30.2 L RDW (11.7-14.6) % 14.6 Plt Count (130-400) 10^3/uL 447 H MPV (8.0-11.0) fL 9.3 Immature Gran % 0.4 Neutrophils % 67.6 Lymphocytes % 25.6 Monocytes % 4.1 Eosinophils % 1.7 Basophils % 0.6 Nucleated RBC % % 0 Absolute Neutrophils (1.2-6.7) 10^3/uL 8.86 H Absolute Lymphocytes (1.2-3.4) 10^3/uL 3.36 Absolute Monocytes (0.1-0.8) 10^3/uL 0.54 Absolute Eosinophils (0.0-0.7) 10^3/uL 0.22 Absolute Basophils (0.0-0.2) 10^3/uL 0.08
[2021-09-15 13:43] LABS: ALT 31 U/L (14-59); AST 21 U/L (15-37); Albumin 3.5 g/dL (3.4-5.0); Alkaline Phosphatase 129 U/L (46-116); Anion Gap 9.1 mmol/L (3-11); BUN 9 mg/dL (7-18); Bilirubin, Total 0.4 mg/dL (0.2-1.0); CO2 25.9 mmol/L (21.0-32.0); Calcium 8.9 mg/dL (8.5-10.1); Chloride 105 mmol/L (98-107); Glucose 78 mg/dL (74-106); Lipase 68 U/L (73-393); Potassium 3.9 mmol/L (3.5-5.1); Sodium 140 mmol/L (136-145); Total Protein 7.7 g/dL (6.4-8.2)
[2021-09-15] MEDS: Normal Saline 1,000 ML 1000 ML IV (13:45)
[2021-09-15 14:12] LABS: D-Dimer 424 ng/mlFEU (<500)
--- NOTE | 2021-09-15 14:17 | DI.RAD_ITS ---
Exam(s) XR CHEST 2V PA LATERAL EXAM: XR CHEST 2V PA LATERAL CLINICAL HISTORY: shortness of breath, r/o acute disease TECHNIQUE: 2D digital imaging was performed. COMPARISON: No exams were available for comparison FINDINGS: MEDIASTINUM: Normal. HEART: Normal. PULMONARY VASCULATURE: Normal. LUNGS: Clear. PLEURAL SPACE: No pleural effusion or pneumothorax. BONE:Unremarkable for age. Exam somewhat limited by patient body habitus. IMPRESSION: No acute abnormality. DATA REPOSITORY: RADIATION DOSE DELIVERED:
[2021-09-15] MEDS: Ondansetron 4 MG/2 ML VIAL IVP (15:00)
[2021-09-15] MEDS: Ondansetron O.D.T. 4 MG TABEF, 3 TABS/BTL PO (15:10)
[2021-09-15 15:15] VITALS: BP 102/63; PULSE 77; RESP 16; TEMP 36.7; O2SAT 98
[2021-09-16 19:16] LABS: COVID-19 RT-PCR UVMMC Result Negative (Negative)
== END 2021-09-15 15:16 | disposition home or self-care (01) ==
PROVIDERS: Emergency Provider Physician Assistant; PCP Nurse Practitioner Family
DX: R06.02 Shortness of breath (principal); R05.3 Chronic cough; K52.9 Noninfective gastroenteritis and colitis, unspecified; R11.10 Vomiting, unspecified; R04.2 Hemoptysis; Z20.822 Contact with and (suspected) exposure to COVID-19
CPT/HCPCS: 36415; 80053; 81025; 83690; 96361; 96374; 99284; U0003; 71046; 85025; 85379; J2405

== ENCOUNTER 2021-09-17 18:49 | Outpatient (REF) | payer MEDICAID, SELFPAY ==
[2021-09-17 21:17] LABS: Abs Immature Grans 0.06 10^3/uL (0.0-0.06); Absolute Basophil Count 0.07 10^3/uL (0.0-0.2); Absolute Eosinophil Count 0.23 10^3/uL (0.0-0.7); Absolute Lymphocyte Count 3.41 10^3/uL (1.2-3.4); Absolute Monocyte Count 0.53 10^3/uL (0.1-0.8); Absolute Neutrophil Count 9.19 10^3/uL (1.2-6.7); Basophils % 0.5; Eosinophils % 1.7; HGB 12.4 g/dL (11.2-15.7); Immature Grans % 0.4; Lymphocytes % 25.3; MCH 25.3 pg (27.0-33.0); MCHC 30.2 % (32.0-36.0); MCV 83.5 fL (80-95); MPV 9.6 fL (8.0-11.0); Monocytes % 3.9; Neutrophils % 68.2; Nucleated RBC 0 %; Platelet Count 477 10^3/uL (130-400); RBC 4.91 10^6/uL (3.93-5.22); RDW 14.5 % (11.7-14.6); RDW-SD 44.1 fL; WBC 13.48 10^3/uL (4.4-10.8)
[2021-09-17 21:28] LABS: ALT 28 U/L (14-59); AST 18 U/L (15-37); Albumin 3.5 g/dL (3.4-5.0); Alkaline Phosphatase 127 U/L (46-116); Anion Gap 11.2 mmol/L (3-11); BUN 11 mg/dL (7-18); Bilirubin, Total 0.3 mg/dL (0.2-1.0); CO2 23.8 mmol/L (21.0-32.0); CREATININE 0.9 mg/dL (0.55-1.02); Calcium 8.9 mg/dL (8.5-10.1); Chloride 105 mmol/L (98-107); Glucose 116 mg/dL (74-106); Lipase 80 U/L (73-393); Potassium 4.4 mmol/L (3.5-5.1); Sodium 140 mmol/L (136-145); Total Protein 7.1 g/dL (6.4-8.2)
[2021-09-19 11:07] LABS: COVID-19 RT-PCR UVMMC Result Negative (Negative)
== END 2021-09-17 18:50 | disposition home or self-care (01) ==
LOC: LBN 18:49
PROVIDERS: PCP Nurse Practitioner Family; Visit Provider Physician Assistant Medical
DX: Z20.822 Contact with and (suspected) exposure to COVID-19 (principal); R11.10 Vomiting, unspecified
CPT/HCPCS: 80053; 83690; U0003; 85025

== ENCOUNTER 2021-11-18 18:33 | Outpatient (REF) | payer MEDICAID, SELFPAY ==
[2021-11-19 11:40] LABS: COVID-19 RT-PCR UVMMC Result Negative (Negative)
== END 2021-11-18 18:34 | disposition home or self-care (01) ==
LOC: LBN 18:33
PROVIDERS: PCP Nurse Practitioner Family; Visit Provider Physician Assistant Medical
DX: Z20.822 Contact with and (suspected) exposure to COVID-19 (principal); R05.8 Other specified cough
CPT/HCPCS: U0003